=== PATIENT | female | born 1945 | race Caucasian/White ===

== ENCOUNTER 2019-01-02 07:09 | Emergency (ER) | payer MEDICAID ==
[~2019-01-02] VITALS: Ht 167.6 cm; Wt 83.9 kg
[2019-01-02 07:14] VITALS: BP 154/83
--- NOTE | 2019-01-02 07:20 | NUR ---
ED Nurse Note: Patient walked into ED form home, sent from [facility], patient c/o facial rash breakout since 12/26/18. patient reports headache on the left side 7-01/25. patient was told she need evaluation for herpes-zoster breakout and needs to be cleared before her scheduled left side breast mastectomy. patient is alert awake x4 ambulatory, brathing unlabored and even. friend at bedside
[2019-01-02] MEDS ORDERED: Fluorescein Strips LEFT EYE ONE (07:45)
[2019-01-02] MEDS ORDERED: Fluorescein Strips ONE (07:45)
[2019-01-02] MEDS ORDERED: Tetracaine 0.5% Opth 4ml Soln LEFT EYE ONE (07:45)
--- NOTE | 2019-01-02 07:57 | NUR ---
ED Nurse Note: patient placed in a gown for MRI
[2019-01-02] MEDS ORDERED: Gadavist 7.5mMol/7.5ml vial IV PRN (08:15)
--- NOTE | 2019-01-02 08:21 | NUR ---
ED Nurse Note: blood sent to lab
[2019-01-02 08:34] LABS: BASOPHILS % (AUTO) 1.7 % (0.0-2.0); EOSINOPHILS % (AUTO) 2.5 % (0.0-3.0); HEMOGLOBIN 14.2 G/DL (12.0-16.0); LYMPHOCYTES % (AUTO) 32.8 % (20.0-45.0); MEAN CORPUSCULAR VOLUME 88 FL (80-99); MONOCYTES % (AUTO) 8.2 % (1.0-10.0); NEUTROPHILS % (AUTO) 54.8 % (45.0-75.0); PLATELET COUNT 205 K/UL (150-450); RED BLOOD COUNT 4.88 M/UL (4.20-5.40); RED CELL DISTRIBUTION WIDTH 11.1 % (11.6-14.8); WHITE BLOOD COUNT 6.2 K/UL (4.8-10.8)
[2019-01-02 08:38] LABS: ANION GAP 7 mmol/L (5-15); BLOOD UREA NITROGEN 12 mg/dL (7-18); CALCIUM 9.9 MG/DL (8.5-10.1); CARBON DIOXIDE 29 MMOL/L (21-32); CHLORIDE 107 MMOL/L (98-107); CREATININE 0.9 MG/DL (0.55-1.30); POTASSIUM 4.4 MMOL/L (3.5-5.1); SODIUM 143 MMOL/L (136-145)
--- NOTE | 2019-01-02 08:40 | NUR ---
ED Nurse Note: patient went to MRI in stable condition
[2019-01-02 08:42] LABS: ALANINE AMINOTRANSFERASE 25 U/L (12-78); ALBUMIN/GLOBULIN RATIO 1.2 (1.0-2.7); ALKALINE PHOSPHATASE 80 U/L (46-116); ASPARTATE AMINO TRANSFERASE 25 U/L (15-37); BILIRUBIN,TOTAL 0.7 MG/DL (0.2-1.0)
--- NOTE | 2019-01-02 08:46 | Emergency Room Report ---
History of Present Illness General Chief Complaint: General Complaint Source: Patient, Family Member Present Illness HPI 73-year-old female presents ED for evaluation. Referred here from [facility] for evaluation. States that she has breast cancer and was scheduled for mastectomy next week however last week she developed a rash on the left side of her face also developing headache left-sided. Throbbing, 8 out of 10, nonradiating. Denies neck stiffness. Denies fevers or chills. [facility] concern for zoster and started patient on Valtrex. Is here to rule out optic nerve involvement. No other aggravating relieving factors. Denies any other associated symptoms Allergies: Coded Allergies: No Known Allergies (Unverified , 01/02/19) Patient History Past Medical History: other - breast cancer Past Surgical History: none Pertinent Family History: none Social History: Denies: smoking, alcohol use, drug use Last Menstrual Period: na Now: No Immunizations: UTD Reviewed Nursing Documentation: PMH: Agreed; PSxH: Agreed Nursing Documentation-PMH Hx Cancer: Yes - breast cancer Review of Systems All Other Systems: negative except mentioned in HPI Physical Exam Vital Signs Date Time Temp Pulse Resp B/P (MAP) Pulse Ox O2 Delivery O2 Flow Rate FiO2 01/02/19 07:14 97.9 74 17 154/83 (106) 96 Room Air Sp02 EP Interpretation: reviewed, normal General Appearance: no apparent distress, alert, GCS 15, non-toxic Head: normocephalic, atraumatic Eyes: left eye other - no evidence of dendritic lesions or corneal ulcer; bilateral eye normal inspection, bilateral eye PERRL, bilateral eye EOMI, bilateral eye visual acuity ENT: hearing grossly normal, normal pharynx, no angioedema, normal voice Neck: full range of motion, supple, no meningismus, supple/symm/no masses Respiratory: chest non-tender, lungs clear, normal breath sounds, speaking full sentences Cardiovascular #1: regular rate, rhythm, no edema Cardiovascular #2: 2+ carotid (R), 2+ carotid (L), 2+ radial (R), 2+ radial (L) , 2+ dorsalis pedis (R), 2+ dorsalis pedis (L) Gastrointestinal: normal bowel sounds, non tender, soft, non-distended, no guarding, no rebound Rectal: deferred Genitourinary: normal inspection, no CVA tenderness Musculoskeletal: back normal, gait/station normal, normal range of motion, non- tender Neurologic: alert, oriented x3, responsive, development writer III-XII nml as tested, motor strength/tone normal, sensory intact, speech normal Psychiatric: judgement/insight normal, memory normal, mood/affect normal, no suicidal/homicidal ideation Reflexes: 3+ bicep (R), 3+ bicep (L), 3+ tricep (R), 3+ tricep (L), 3+ knee (R) , 3+ knee (L) Skin: other - crusting vesicular lesions on L side of face. not crossing midline. Lymphatic: no adenopathy Medical Decision Making Diagnostic Impression: Primary Impression: Herpes zoster Qualified Codes: B02.30 - Zoster ocular disease, unspecified ER Course Hospital Course 73-year-old female presents ED for evaluation of headache, left eye pain. Currently being treated for zoster. Differential diagnoses include: brain mets, abscess, zoster opthalimicus Clinical course Patient placed on stretcher. After initial history and physical I ordered labs , MRI of brain and orbit Using tetracaine, fluorescein and was lab I see no evidence of obvious infiltration into the eye labs reviewed - no leukocytosis, Hb/Hct stable, no electrolyte abnormalities. MRI brain and orbit show no evidence of the optic involvement or brain abnormality Discussed case with ID based on presentation recommend admission with IV acyclovir and optho evaluation States she does not want to be admitted. Patient states she wishes to go home. Understands the risks of leaving. Patient has competency to make her own decisions. Signed AMA form. Recommend that she continues the valacyclovir as prescribed. Will provide with optho referrals iagnosis - herpes zoster patient left AMA Labs Test 01/02/19 08:18 01/02/19 09:59 White Blood Count 6.2 K/UL (4.8-10.8) Red Blood Count 4.88 M/UL (4.20-5.40) Hemoglobin 14.2 G/DL (12.0-16.0) Hematocrit 43.0 % (37.0-47.0) Mean Corpuscular Volume 88 FL (80-99) Mean Corpuscular Hemoglobin 29.0 PG (27.0-31.0) Mean Corpuscular Hemoglobin Concent 33.0 G/DL (32.0-36.0) Red Cell Distribution Width 11.1 % (11.6-14.8) Platelet Count 205 K/UL (150-450) Mean Platelet Volume 6.1 FL (6.5-10.1) Neutrophils (%) (Auto) 54.8 % (45.0-75.0) Lymphocytes (%) (Auto) 32.8 % (20.0-45.0) Monocytes (%) (Auto) 8.2 % (1.0-10.0) Eosinophils (%) (Auto) 2.5 % (0.0-3.0) Basophils (%) (Auto) 1.7 % (0.0-2.0) Sodium Level 143 MMOL/L (136-145) Potassium Level 4.4 MMOL/L (3.5-5.1) Chloride Level 107 MMOL/L (98-107) Carbon Dioxide Level 29 MMOL/L (21-32) Anion Gap 7 mmol/L (5-15) Blood Urea Nitrogen 12 mg/dL (7-18) Creatinine 0.9 MG/DL (0.55-1.30) Estimat Glomerular Filtration Rate mL/min (>60) Glucose Level 98 MG/DL (74-106) Calcium Level 9.9 MG/DL (8.5-10.1) Total Bilirubin 0.7 MG/DL (0.2-1.0) Aspartate Amino Transf (AST/SGOT) 25 U/L (15-37) Alanine Aminotransferase (ALT/SGPT) 25 U/L (12-78) Alkaline Phosphatase 80 U/L (46-116) Total Protein 7.3 G/DL (6.4-8.2) Albumin 4.0 G/DL (3.4-5.0) Globulin 3.3 g/dL Albumin/Globulin Ratio 1.2 (1.0-2.7) Lactic Acid Level 0.60 mmol/L (0.4-2.0) CT/MRI/US Diagnostic Results CT/MRI/US Diagnostic Results #1: Imaging Test Ordered: MRI brain Impression There is mild prominence of the sulci, ventricles, and basal cisterns consistent with atrophy. Mild, nonspecific T2 hyperintensity noted within white matter. This may be due to chronic small vessel disease. No abnormal enhancement is identified within the brain or meninges to suggest metastatic neoplasm. There is no restricted diffusion. [place]-white differentiation is normal. There is no mass effect, midline shift, edema, or hemorrhage. There are no abnormal extra- axial or intra-axial fluid collections. The corpus callosum and sella are unremarkable. The brainstem and cerebellum are unremarkable. Bone marrow signal within the visualized osseous structures appears age appropriate and unremarkable otherwise. The optic nerves are normal in appearance. There is no abnormal enhancement. The orbital fat appears normal. The optic chiasm is normal. Visualized suprasellar cistern is unremarkable. There is no abnormal fluid collection either intraconal or extraconal in location. There is a small amount of left eyelid and facial/ periorbital edema involving the subcutaneous tissue. No abscess or fluid collections are seen. Minimal mucosal thickening noted within the ethmoid sinus consistent with the mild sinusitis. There is a small lipoma along the right frontal scalp. CT/MRI/US Diagnostic Results #2: Imaging Test Ordered: MRI Orbits Impression There is mild prominence of the sulci, ventricles, and basal cisterns consistent with atrophy. Mild, nonspecific T2 hyperintensity noted within white matter. This may be due to chronic small vessel disease. No abnormal enhancement is identified within the brain or meninges to suggest metastatic neoplasm. There is no restricted diffusion. [place]-white differentiation is normal. There is no mass effect, midline shift, edema, or hemorrhage. There are no abnormal extra- axial or intra-axial fluid collections. The corpus callosum and sella are unremarkable. The brainstem and cerebellum are unremarkable. Bone marrow signal within the visualized osseous structures appears age appropriate and unremarkable otherwise. The optic nerves are normal in appearance. There is no abnormal enhancement. The orbital fat appears normal. The optic chiasm is normal. Visualized suprasellar cistern is unremarkable. There is no abnormal fluid collection either intraconal or extraconal in location. There is a small amount of left eyelid and facial/ periorbital edema involving the subcutaneous tissue. No abscess or fluid collections are seen. Minimal mucosal thickening noted within the ethmoid sinus consistent with the mild sinusitis. There is a small lipoma along the right frontal scalp. Last Vital Signs Date Time Temp Pulse Resp B/P (MAP) Pulse Ox O2 Delivery O2 Flow Rate FiO2 01/02/19 07:31 74 17 Room Air 01/02/19 07:14 97.9 154/83 96 Status: improved Disposition: AGAINST MEDICAL ADVICE Condition: Stable Scripts Acetaminophen With Codeine (T#3) (TYLENOL #3 TAB*) Y Tab 1 TAB ORAL Q8H PRN for For Pain, #12 TAB Prov: Sravan Rome MD 01/02/19 Referrals: NON PHYSICIAN (PCP) Sravan Rome MD Jan 02, 2019 08:46
[2019-01-02] MEDS ORDERED: Acyclovir 1,000 MG in D5W 275 ML IVPB ONE (09:15)
--- NOTE | 2019-01-02 10:00 | NUR ---
ED Nurse Note: patient came back from MRI
[2019-01-02] MEDS ORDERED: Tylenol #3 tab (300mg/30mg) ORAL ONE (10:15)
--- NOTE | 2019-01-02 10:53 | Diagnostic Imaging Report ---
Indication: Shingles. Left eye blurriness. Concern for optic neuritis. Dizziness and headache Technique: The head was imaged in a 1.5 Nia magnet. Sequences obtained include sagittal and axial T1 FLAIR, axial T2 fast spin echo with fat saturation, axial T2 FLAIR, diffusion and ADC map. Gadolinium-enhanced axial and coronal T1 FLAIR obtained also. Orbit MRI also performed with and without gadolinium. Multiplanar T1 and T2 fast spin-echo and gadolinium-enhanced multiplanar T1 fast spin-echo with fat saturation. Comparison: None Findings: There is mild prominence of the sulci, ventricles, and basal cisterns consistent with atrophy. Mild, nonspecific T2 hyperintensity noted within white matter. This may be due to chronic small vessel disease. No abnormal enhancement is identified within the brain or meninges to suggest metastatic neoplasm. There is no restricted diffusion. [place]-white differentiation is normal. There is no mass effect, midline shift, edema, or hemorrhage. There are no abnormal extra-axial or intra-axial fluid collections. The corpus callosum and sella are unremarkable. The brainstem and cerebellum are unremarkable. Bone marrow signal within the visualized osseous structures appears age appropriate and unremarkable otherwise. The optic nerves are normal in appearance. There is no abnormal enhancement. The orbital fat appears normal. The optic chiasm is normal. Visualized suprasellar cistern is unremarkable. There is no abnormal fluid collection either intraconal or extraconal in location. There is a small amount of left eyelid and facial/periorbital edema involving the subcutaneous tissue. No abscess or fluid collections are seen. Minimal mucosal thickening noted within the ethmoid sinus consistent with the mild sinusitis. There is a small lipoma along the right frontal scalp. Impression: No acute intracranial findings. No evidence of metastatic neoplasm. No evidence of optic neuritis. Left periorbital soft tissue swelling presumably related to shingles. No abscess identified. Age-related findings including atrophy and evidence of chronic small vessel disease involving white matter tracts. Findings were discussed with Dr. Latricia hodges emergency department at approximately 10:00 AM 01/02/2019
[2019-01-02] MEDS ORDERED: ACETAMINOPHEN-1 EAC1 ORAL (10:59)
--- NOTE | 2019-01-02 11:10 | NUR ---
AMA: SEE AMA FORM. patient refused to get admitted to hospital as MD advised.
[2019-01-02 11:11] VITALS: BP 154/83
--- NOTE | 2019-01-02 11:11 | NUR ---
ER DISCHARGE NOTE: Patient is cleared to be discharged per ERMD DR Rome, pt is aox4, on room air, with stable vital signs. pt was given dc and prescription instructions, pt was able to verbalize understanding, pt id band and iv site removed without complications. pt is able to ambulate with steady gait. pt took all belongings.
== END 2019-01-02 11:11 | disposition left against medical advice (07) ==
LOC: EMR 07:32 → CANBEDREQ 11:20
DX: B02.9 Zoster without complications (principal); C50.919 Malignant neoplasm of unspecified site of unspecified female breast
CPT/HCPCS: 36415; 70543; 70553; 80053; 83605; 85025; 87040; 96361; 96365; 99284; A9585; J0133

== ENCOUNTER 2019-12-12 16:15 | Emergency (ER) | payer MEDICAID ==
[~2019-12-12] VITALS: Ht 162.6 cm; Wt 90.3 kg
[~2019-12-12 16:15] MED LIST: ACETAMINOPHEN-1 EAC1 ORAL
--- NOTE | 2019-12-12 16:32 | NUR ---
ED Nurse Note:pt. came from home with c/o burning right flank pain radiating to the abdomen since yesterday, pt. is ambulatory, skin intact, A/Ox4
--- NOTE | 2019-12-12 16:44 | Emergency Room Report ---
History of Present Illness General Chief Complaint: Abdominal Pain Source: Patient, Medical Record Present Illness HPI Patient presents with right upper quadrant pain radiating across the upper abdomen that began last night. She took [id number] English medication and it seemed to help. The medicine is an anti-spasmatic apparently. The pain returned approximately an hour ago. She rates it 8/10 and severe and cramping but also burning. It radiates again across the abdomen to the left-hand side from the right. She is worried that this is related to her liver because she is had some chemotherapy and is taking some medication for the liver at this time. She vomited some saliva without coffee grounds or food stuff. She denies nausea at this time. She has moved her bowels and does not have diarrhea. She denies dysuria also. She had a similar episode many years ago at that she says was cholecystitis. She still has her gallbladder. No fevers, chills, sore throat, chest pain, palpitations, shortness of breath, joint pain, rashes, depression, anxiety, visual changes, dizziness, headache. Allergies: Coded Allergies: No Known Allergies (Unverified , 01/02/19) COVID-19 Screening Contact w/high risk pt: No Recent Travel to affected area: No Experienced COVID-19 symptoms?: No COVID-19 Testing performed ELECTRICAL TEST TECHNICIAN: No Patient History Past Medical History: see triage record Social History: Denies: smoking Social History Narrative [place] speaking Reviewed Nursing Documentation: PMH: Agreed; PSxH: Agreed Nursing Documentation-PMH Past Medical History: No History, Except For Hx Cancer: Yes - breast cancer Review of Systems All Other Systems: negative except mentioned in HPI Physical Exam Vital Signs Date Time Temp Pulse Resp B/P (MAP) Pulse Ox O2 Delivery O2 Flow Rate FiO2 12/12/19 16:18 97.9 70 20 128/70 (89) 98 Room Air Sp02 EP Interpretation: reviewed, normal General Appearance: well appearing, no apparent distress, GCS 15, non-toxic Head: normocephalic Eyes: bilateral eye normal inspection, bilateral eye PERRL, bilateral eye EOMI ENT: moist mucus membranes Neck: supple Respiratory: lungs clear, normal breath sounds Cardiovascular #1: regular rate, rhythm Cardiovascular #2: 2+ radial (R) Gastrointestinal: normal inspection, normal bowel sounds, no mass, non- distended, no rebound, guarding - minimal, tenderness - RUQ Genitourinary: no CVA tenderness Musculoskeletal: back normal, normal range of motion, gait/station normal Neurologic: alert, oriented x3, normal inspection Psychiatric: mood/affect normal Skin: no rash, warm/dry Medical Decision Making Diagnostic Impression: Primary Impression: Acute pancreatitis Qualified Codes: K85.90 - Acute pancreatitis without necrosis or infection, unspecified Additional Impression: Elevated liver function tests ER Course Patient presents with right upper quadrant pain rating to the left that began last night. Differential includes cholecystitis, cholelithiasis, peptic ulcer disease, renal stone, aortic aneurysm, gastritis, acute myocardial infarction amongst others. The patient is placed on a athletic monitor. Evaluation will be with EKG CT of the abdomen and labs. The patient receive IV hydration, Reglan, Benadryl, Pepcid and morphine. EKG no injury. Chest x-ray with poor inspiration. Labs with normal white count but left shift. Elevated liver function tests and lipase. Based on labs, suspect gall bladder disease. CT abdomen cancelled and ultrasound ordered. 1809 Ultrasound with small gallstones without evidence of cholecystitis. Discussed the need for hospitalization with patient. She insists on going home. Through the nurse she was told of risk of . She says she will follow-up with her own doctor. Patient signed out AGAINST MEDICAL ADVICE. Laboratory Tests Test 12/12/19 17:00 White Blood Count 7.5 K/UL (4.8-10.8) Red Blood Count 4.40 M/UL (4.20-5.40) Hemoglobin 12.7 G/DL (12.0-16.0) Hematocrit 38.4 % (37.0-47.0) Mean Corpuscular Volume 87 FL (80-99) Mean Corpuscular Hemoglobin 28.9 PG (27.0-31.0) Mean Corpuscular Hemoglobin Concent 33.1 G/DL (32.0-36.0) Red Cell Distribution Width 13.0 % (11.6-14.8) Platelet Count 149 K/UL (150-450) L Mean Platelet Volume 7.0 FL (6.5-10.1) Neutrophils (%) (Auto) % (45.0-75.0) Lymphocytes (%) (Auto) % (20.0-45.0) Monocytes (%) (Auto) % (1.0-10.0) Eosinophils (%) (Auto) % (0.0-3.0) Basophils (%) (Auto) % (0.0-2.0) Differential Total Cells Counted 100 Neutrophils % (Manual) 90 % (45-75) H Lymphocytes % (Manual) 6 % (20-45) L Monocytes % (Manual) 3 % (1-10) Eosinophils % (Manual) 1 % (0-3) Basophils % (Manual) 0 % (0-2) Band Neutrophils 0 % (0-8) Platelet Estimate Decreased L Platelet Morphology Normal Red Blood Cell Morphology Normal Prothrombin Time 11.0 SEC (9.30-11.50) Prothrombin Time INR 1.0 (0.9-1.1) Activated Partial Thromboplast Time 25 SEC (23-33) Sodium Level 136 MMOL/L (136-145) Potassium Level 3.7 MMOL/L (3.5-5.1) Chloride Level 101 MMOL/L (98-107) Carbon Dioxide Level 25 MMOL/L (21-32) Anion Gap 10 mmol/L (5-15) Blood Urea Nitrogen 22 mg/dL (7-18) H Creatinine 1.1 MG/DL (0.55-1.30) Estimated Glomerular Filtration Rate 48.7 mL/min (>60) Glucose Level 131 MG/DL (74-106) H Calcium Level 9.6 MG/DL (8.5-10.1) Total Bilirubin 1.0 MG/DL (0.2-1.0) Aspartate Amino Transferase (AST) 155 U/L (15-37) H Alanine Aminotransferase (ALT) 103 U/L (12-78) H Alkaline Phosphatase 156 U/L (46-116) H Troponin I 0.000 ng/mL (0.000-0.056) Total Protein 7.1 G/DL (6.4-8.2) Albumin 3.8 G/DL (3.4-5.0) Globulin 3.3 g/dL Albumin/Globulin Ratio 1.2 (1.0-2.7) Lipase 6002 U/L (73-393) H EKG Diagnostic Results Rate: normal Rhythm: NSR ST Segments: no acute changes Rhythm Strip Diag. Results EP Interpretation: yes Rhythm: NSR, no PVC's, no ectopy CT/MRI/US Diagnostic Results CT/MRI/US Diagnostic Results : Imaging Test Ordered: Abdomen ultrasound Impression Small gallstone without pericholecystic free fluid. Gallbladder wall is thick at 5 mm, clinically correlate. CBD 4 mm. Mild prominence of the right renal pelvis is nonspecific. Last Vital Signs Date Time Temp Pulse Resp B/P (MAP) Pulse Ox O2 Delivery O2 Flow Rate FiO2 12/12/19 19:12 97.9 20 128/70 98 Room Air 12/12/19 16:32 70 Status: improved Disposition: AGAINST MEDICAL ADVICE Condition: Serious Scripts No Active Prescriptions or Reported Meds Jeremy Olmos MD Dec 12, 2019 16:44
[2019-12-12] MEDS ORDERED: DiphenhydrAMINE 50mg/ml Inj IVP ONE (16:45)
[2019-12-12] MEDS ORDERED: Omnipaque-300 100ml vial INJ PRN (16:45)
[2019-12-12] MEDS ORDERED: Metoclopramide 10mg/2ml Inj IVP ONE (16:45)
[2019-12-12] MEDS ORDERED: Morphine Sulfate 2mg/ml Inj(IV/IM USE ONLY) IVP ONE (16:45)
[2019-12-12 16:55] VITALS: BP 128/70
[2019-12-12 17:52] LABS: ANION GAP 10 mmol/L (5-15); BLOOD UREA NITROGEN 22 mg/dL (7-18); CALCIUM 9.6 MG/DL (8.5-10.1); CARBON DIOXIDE 25 MMOL/L (21-32); CHLORIDE 101 MMOL/L (98-107); CREATININE 1.1 MG/DL (0.55-1.30); POTASSIUM 3.7 MMOL/L (3.5-5.1); SODIUM 136 MMOL/L (136-145)
[2019-12-12 17:56] LABS: HEMATOCRIT 38.4 % (37.0-47.0); HEMOGLOBIN 12.7 G/DL (12.0-16.0); MEAN CORPUSCULAR VOLUME 87 FL (80-99); PLATELET COUNT 149 K/UL (150-450); WHITE BLOOD COUNT 7.5 K/UL (4.8-10.8)
[2019-12-12 18:02] LABS: ALANINE AMINOTRANSFERASE 103 U/L (12-78); ALBUMIN 3.8 G/DL (3.4-5.0); ALBUMIN/GLOBULIN RATIO 1.2 (1.0-2.7); ALKALINE PHOSPHATASE 156 U/L (46-116); ASPARTATE AMINO TRANSFERASE 155 U/L (15-37)
--- NOTE | 2019-12-12 18:12 | Diagnostic Imaging Report ---
Indication: Reason For Exam: ABD PAIN Technique: Single AP view of the chest. Comparison: None. Findings: The cardiomediastinal silhouette is within normal limits. Mild pulmonary vessel congestion. There are streaky bibasilar airspace opacities. No pneumothorax. No acute osseous abnormality. IMPRESSION: Pulmonary vessel congestion with streaky bibasilar airspace opacities which could represent combination of edema and atelectasis but pneumonia should be excluded clinically.
[2019-12-12 19:12] VITALS: BP 128/70
--- NOTE | 2019-12-12 19:15 | NUR ---
AMA:pt. was explained by STEPHANIE ALDRICH possible consequences of her going AMA SEE AMA FORM.
--- NOTE | 2019-12-12 19:26 | Diagnostic Imaging Report ---
History: ABD PAIN Exam: US ABDOMEN Comparison: FINDINGS: Study limited by body habitus. Abdominal aorta appears within limits. Pancreas not well-seen. Inferior vena cava appears unremarkable. Liver measures 14.1 cm. Small gallstone without pericholecystic free fluid. Wall measures 5 mm. CBD 4 mm. Mild prominence of the right renal pelvis is nonspecific. No left hydronephrosis. No free fluid seen. Spleen measures 9 cm. IMPRESSION: Small gallstone without pericholecystic free fluid. Gallbladder wall is thick at 5 mm, clinically correlate. CBD 4 mm. Mild prominence of the right renal pelvis is nonspecific.
== END 2019-12-12 19:15 | disposition left against medical advice (07) ==
LOC: EMR 16:45 → CANBEDREQ 19:19
DX: K85.90 Acute pancreatitis without necrosis or infection, unspecified (principal); R94.5 Abnormal results of liver function studies; Z85.3 Personal history of malignant neoplasm of breast; K80.80 Other cholelithiasis without obstruction
CPT/HCPCS: 36415; 71045; 76700; 80053; 83690; 84484; 85007; 85025; 85610; 85730; 86850; 86900; 86901; 93005; 96361; 96374; 96375; J1200; J2270; J2765; J7030; S0028; Z7502; 99284

== ENCOUNTER 2020-07-20 08:50 | Inpatient (IN) | payer MEDICAID ==
[~2020-07-20] VITALS: Ht 160 cm; Wt 72.6 kg
[2020-07-20] MEDS ORDERED: Morphine Sulfate 2mg/ml Inj(IV/IM USE ONLY) IVP ONE (09:15)
[2020-07-20 09:17] VITALS: BP 115/48
[2020-07-20 09:31] LABS: HEMATOCRIT 43.5 % (37.0-47.0); HEMOGLOBIN 14.2 G/DL (12.0-16.0); MEAN CORPUSCULAR VOLUME 86 FL (80-99); PLATELET COUNT 129 K/UL (150-450); RED BLOOD COUNT 5.04 M/UL (4.20-5.40); RED CELL DISTRIBUTION WIDTH 12.1 % (11.6-14.8); WHITE BLOOD COUNT 11.3 K/UL (4.8-10.8)
[2020-07-20 09:41] LABS: CALCIUM 9.9 MG/DL (8.5-10.1); CREATININE 1.1 MG/DL (0.55-1.30); POTASSIUM 3.7 MMOL/L (3.5-5.1)
--- NOTE | 2020-07-20 09:49 | Emergency Room Report ---
History of Present Illness General Chief Complaint: Abdominal Pain Source: Patient Present Illness HPI Patient is a 74-year-old female presents for increased right upper abdominal pain. Prior history of gallstones in the past. Reports having worsening pain and vomiting persistently. States he been vomiting for the past 3 days. Denies any hematemesis reports having some bilious emesis. Reports having increased pain with eating. Denies any diarrhea has had decreased bowel movements. Patient had been unable to eat for several days. Patient has longstanding pain but this got worse over the past 10 days. Patient had prior history of left- sided breast cancer and had recent mastectomy approximate 1 year ago.Patient had previous radiation therapy. Allergies: Coded Allergies: No Known Allergies (Unverified , 01/02/19) COVID-19 Screening Contact w/high risk pt: No Recent Travel to affected area: No Experienced COVID-19 symptoms?: No COVID-19 Testing performed APPRENTICE EMBALMER: No Patient History Past Medical History: see triage record Reviewed Nursing Documentation: PMH: Agreed; PSxH: Agreed Nursing Documentation-PMH Past Medical History: No History, Except For Hx Cancer: Yes - breast cancer left Hx Gastrointestinal Problems: Yes - cholesistitis Review of Systems All Other Systems: negative except mentioned in HPI Physical Exam Vital Signs Date Time Temp Pulse Resp B/P (MAP) Pulse Ox O2 Delivery O2 Flow Rate FiO2 07/20/20 08:53 98.2 92 17 94/57 (69) 95 Room Air Sp02 EP Interpretation: reviewed, normal General Appearance: normal inspection, well appearing, alert, GCS 15, mild distress Head: atraumatic ENT: normal ENT inspection, hearing grossly normal, normal voice Neck: normal inspection, full range of motion, supple, no bony tend Respiratory: normal inspection, lungs clear, normal breath sounds, no respiratory distress, no retraction, no wheezing Cardiovascular #1: regular rate, rhythm, no edema Gastrointestinal: normal inspection, normal bowel sounds, soft, no guarding, no hernia, tenderness - Right upper abdomen tenderness. Genitourinary: no CVA tenderness Musculoskeletal: normal inspection, back normal, normal range of motion Neurologic: alert, motor strength/tone normal, director of strategic partnerships III-XII nml as tested, responsive, speech normal, normal inspection Psychiatric: normal inspection, judgement/insight normal, mood/affect normal Medical Decision Making Diagnostic Impression: Primary Impression: Abdominal pain Additional Impressions: Elevated liver function tests Breast cancer ER Course Patient presents for abdominal pain. Differential diagnosis include was not limited to pancreatitis, ulcer, cholecystitis among others. Because of complexity of patient's case laboratory tests and imaging studies were ordered.Patient's laboratory testing showed some elevation of liver function test. Abdominal ultrasound was ordered as was CT of the abdomen pelvis. Patient is given IV fluids as well as pain medications. Dr. Jameson Ahumada was contacted for inpatient management. Laboratory Tests Test 07/22/20 08:50 07/23/20 05:30 White Blood Count 3.9 K/UL (4.8-10.8) L Pending Red Blood Count 4.12 M/UL (4.20-5.40) L Pending Hemoglobin 11.8 G/DL (12.0-16.0) L Pending Hematocrit 36.4 % (37.0-47.0) L Pending Mean Corpuscular Volume 88 FL (80-99) Pending Mean Corpuscular Hemoglobin 28.6 PG (27.0-31.0) Pending Mean Corpuscular Hemoglobin Concent 32.4 G/DL (32.0-36.0) Pending Red Cell Distribution Width 12.4 % (11.6-14.8) Pending Platelet Count 117 K/UL (150-450) L Pending Mean Platelet Volume 6.8 FL (6.5-10.1) Pending Neutrophils (%) (Auto) 52.2 % (45.0-75.0) Pending Lymphocytes (%) (Auto) 29.8 % (20.0-45.0) Pending Monocytes (%) (Auto) 13.6 % (1.0-10.0) H Pending Eosinophils (%) (Auto) 3.6 % (0.0-3.0) H Pending Basophils (%) (Auto) 0.9 % (0.0-2.0) Pending Sodium Level 143 MMOL/L (136-145) Pending Potassium Level 3.6 MMOL/L (3.5-5.1) Pending Chloride Level 109 MMOL/L (98-107) H Pending Carbon Dioxide Level 26 MMOL/L (21-32) Pending Anion Gap 8 mmol/L (5-15) Blood Urea Nitrogen 8 mg/dL (7-18) Pending Creatinine 0.8 MG/DL (0.55-1.30) Pending Estimated Glomerular Filtration Rate > 60 mL/min (>60) Pending Glucose Level 94 MG/DL (74-106) Pending Calcium Level 9.1 MG/DL (8.5-10.1) Pending Total Bilirubin 1.3 MG/DL (0.2-1.0) H Pending Direct Bilirubin 1.0 MG/DL (0.0-0.3) H Aspartate Amino Transferase (AST) 178 U/L (15-37) H Pending Alanine Aminotransferase (ALT) 230 U/L (12-78) H Pending Alkaline Phosphatase 257 U/L (46-116) H Pending Total Protein 6.0 G/DL (6.4-8.2) L Pending Albumin 2.8 G/DL (3.4-5.0) L Pending Globulin 3.2 g/dL Pending Albumin/Globulin Ratio 0.9 (1.0-2.7) L Amylase Level Pending Lipase Pending Last Vital Signs Date Time Temp Pulse Resp B/P (MAP) Pulse Ox O2 Delivery O2 Flow Rate FiO2 07/20/20 09:28 87 18 Room Air 07/20/20 09:17 115/48 99 07/20/20 08:53 98.2 Status: improved Disposition: ADMITTED INPATIENT Condition: Stable Scripts No Active Prescriptions or Reported Meds Hill Shepard MD Jul 20, 2020 09:49
[2020-07-20 09:52] LABS: ALBUMIN 3.9 G/DL (3.4-5.0); ALBUMIN/GLOBULIN RATIO 1.1 (1.0-2.7); BILIRUBIN,TOTAL 1.4 MG/DL (0.2-1.0)
[2020-07-20 09:53] LABS: BILIRUBIN,DIRECT 0.5 MG/DL (0.0-0.3)
[2020-07-20 09:58] LABS: INR 1.1 (0.9-1.1)
[2020-07-20 10:56] VITALS: BP 110/45
[2020-07-20 13:28] VITALS: BP 134/78
[2020-07-20] MEDS ORDERED: Omnipaque-300 100ml vial INJ PRN (13:30)
--- NOTE | 2020-07-20 13:37 | NUR ---
ED Nurse Note: called report to Betzaida RAINEY. room 418. pt in [address] now
[2020-07-20 13:56] LABS: APPEARANCE,URINE CLEAR; BILIRUBIN, URINE NEGATIVE (NEGATIVE); GLUCOSE, URINE (UA) NEGATIVE (NEGATIVE); KETONES,URINE NEGATIVE (NEGATIVE); LEUKOCYTE ESTERASE ,URINE NEGATIVE (NEGATIVE); NITRITE,URINE NEGATIVE (NEGATIVE); PH,URINE 6.5 (4.5-8.0); PROTEIN,URINE NEGATIVE (NEGATIVE); UROBILINOGEN,URINE NORMAL MG/DL (0.0-1.0)
[2020-07-20 13:59] LABS: COLOR,URINE YELLOW
--- NOTE | 2020-07-20 14:19 | NUR ---
NURSE NOTES: Received report from Fernando RAINEY, German speaking, per Lo HERNANDEZ, patient is a/a/o x4 laying in a bed with no signs of distress. patient is complaining of pain 7/10 abdomen. per report pt got morphine and Zofran last dosage given 914. IV on the left AC gauge#20 HL. RN will contact to request admission orders. call light within reach, bed in lowest position,side rales up x2. I will f/u as needed.
--- NOTE | 2020-07-20 14:44 | History and Physical Report ---
DATE OF ADMISSION: 07/20/2020 DATE AND TIME SEEN: 07/20/2020 at 1 p.m. CONSULTANTS: 1. Trenton Teresa MD. 2. Rajeev Richard MD. 3. Almas Posadas MD. 4. Jean-Claude Love MD. CHIEF COMPLAINT: Right upper quadrant pain, history of gallstone and breast cancer. BRIEF HISTORY: This is a 74-year-old female, who lives at home, presents with three-day increased right abdominal pain and nausea. The patient came to [facility], diagnosed with above. Currently in a wheelchair, CAT scan. Slight nausea and positive abdominal pain. No complaint. REVIEW OF SYSTEMS: No chest pain. No shortness of breath. Slight nausea. No vomiting. No diarrhea. PAST MEDICAL HISTORY: Gallstone, left breast cancer, pancreatitis, and herpes zoster. PAST SURGICAL HISTORY: Mastectomy one year ago. MEDICATIONS: Include Zofran, morphine, and . ALLERGIES: Denies. SOCIAL HISTORY: Unable to obtain. PHYSICAL EXAMINATION: GENERAL: Calm, in wheelchair in the ER, oriented x3, no acute distress. VITAL SIGNS: Temperature is 98, pulse 67, respirations 18, blood pressure 134/78. CARDIOVASCULAR: No murmur. LUNGS: Distant and clear. ABDOMEN: Bowel sounds positive. Slightly tender. No guarding. No rigidity. No rebound. EXTREMITIES: No cyanosis or edema. NEUROLOGIC: The patient moves all extremities slightly weak. LABORATORY AND DIAGNOSTIC DATA: Labs at this time show white count 11.3 and otherwise platelets 129. Sodium 135, glucose 138. AST 335, ALT 452, alkaline phosphatase 321, otherwise normal. INR 1.1. ASSESSMENT: Right upper quadrant pain, history of gallstone, left breast cancer, elevated LFT, pancreatitis, and herpes zoster. PLAN: Pain control. NPO. IV fluids. Dietary followup. Pending CT. CBC and BMP in the morning. Jameson Ahumada D.O. DR: JODIE/ARY JOB#: [id number] CC:
--- NOTE | 2020-07-20 14:54 | Consultation ---
History of Present Illness General Date patient seen: Jul 20, 2020 Reason for Hospitalization: Abdominal Pain Present Illness HPI 74-year-old female presents for increased right upper abdominal pain with radiation to right flank and back. Prior history of gallstones in the past. Reports having worsening pain and vomiting persistently. States he been vomiting for the past 3 days. Denies any hematemesis reports having some bilious emesis. Reports having increased pain with eating. Denies any diarrhea has had decreased bowel movements. Patient had been unable to eat for several days. Patient has longstanding pain but this got worse over the past 10 days. Patient had prior history of left-sided breast cancer and had recent mastectomy approximate 1 year ago. surgery called to evaluate Allergies: Coded Allergies: No Known Allergies (Unverified , 01/02/19) COVID-19 Screening Contact w/high risk pt: No Recent Travel to affected area: No Experienced COVID-19 symptoms?: No Medication History No Active Prescriptions or Reported Meds Patient History Healthcare decision maker Resuscitation status Advanced Directive on File Review of Systems Review of Symptoms General ROS: no weight loss or fever Psychological ROS: no depression or mood changes, no memory loss Ophthalmic ROS: no visual changes or eye irritation ENT ROS: no nasal congestion, hearing loss, dizziness Allergy and Immunology ROS: no allergic symptoms or urticaria Hematological and Lymphatic ROS: no swollen glands, unusual bleeding or bruising Endocrine ROS: no polyuria, polydipsia, weight changes, temperature intolerance Respiratory ROS: no cough, shortness of breath, or wheezing Cardiovascular ROS: no chest pain or dyspnea on exertion Gastrointestinal ROS: + abdominal pain, bright red blood in stool. Musculoskeletal ROS: no myalgias or arthralgias Neurological ROS: no TIA or stroke symptoms Dermatological ROS: no new or changing skin lesions, rashes or pruritis Physical Exam Physical Exam General appearance: alert, cooperative, no distress, appears stated age Head: Normocephalic, without obvious abnormality, atraumatic Eyes: conjunctivae/corneas clear. PERRL, EOM's intact. Fundi benign Throat: Lips, mucosa, and tongue normal. Teeth and gums normal Neck: supple, symmetrical, trachea midline, no adenopathy, thyroid: not enlarged, symmetric, no tenderness/mass/nodules, no carotid bruit and no JVD Lungs: clear to auscultation bilaterally Heart: regular rate and rhythm, S1, S2 normal, no murmur, click, rub or gallop Abdomen: soft, non-tender. Bowel sounds normal. No masses, no organomegaly. right flank tender Extremities: extremities normal, atraumatic, no cyanosis or edema Pulses: 2+ and symmetric Skin: Skin color, texture, turgor normal. No rashes or lesions Neurologic: Grossly normal Last 24 Hour Vital Signs Date Time Temp Pulse Resp B/P (MAP) Pulse Ox O2 Delivery O2 Flow Rate FiO2 07/20/20 14:39 Room Air 07/20/20 13:28 67 18 134/78 100 Room Air 07/20/20 10:56 77 18 110/45 98 Room Air 07/20/20 09:47 98.2 07/20/20 09:28 87 18 Room Air 07/20/20 09:17 81 18 115/48 99 Room Air 07/20/20 08:53 98.2 92 17 94/57 (69) 95 Room Air Laboratory Tests Test 07/20/20 09:08 07/20/20 13:25 White Blood Count 11.3 K/UL (4.8-10.8) H Red Blood Count 5.04 M/UL (4.20-5.40) Hemoglobin 14.2 G/DL (12.0-16.0) Hematocrit 43.5 % (37.0-47.0) Mean Corpuscular Volume 86 FL (80-99) Mean Corpuscular Hemoglobin 28.1 PG (27.0-31.0) Mean Corpuscular Hemoglobin Concent 32.6 G/DL (32.0-36.0) Red Cell Distribution Width 12.1 % (11.6-14.8) Platelet Count 129 K/UL (150-450) L Mean Platelet Volume 6.7 FL (6.5-10.1) Neutrophils (%) (Auto) % (45.0-75.0) Lymphocytes (%) (Auto) % (20.0-45.0) Monocytes (%) (Auto) % (1.0-10.0) Eosinophils (%) (Auto) % (0.0-3.0) Basophils (%) (Auto) % (0.0-2.0) Differential Total Cells Counted 100 Neutrophils % (Manual) 91 % (45-75) H Lymphocytes % (Manual) 5 % (20-45) L Monocytes % (Manual) 4 % (1-10) Eosinophils % (Manual) 0 % (0-3) Basophils % (Manual) 0 % (0-2) Band Neutrophils 0 % (0-8) Platelet Estimate Adequate Platelet Morphology Normal Red Blood Cell Morphology Normal Prothrombin Time 12.0 SEC (9.30-11.50) H Prothromb Time International Ratio 1.1 (0.9-1.1) Activated Partial Thromboplast Time 26 SEC (23-33) Sodium Level 135 MMOL/L (136-145) L Potassium Level 3.7 MMOL/L (3.5-5.1) Chloride Level 100 MMOL/L (98-107) Carbon Dioxide Level 24 MMOL/L (21-32) Anion Gap 11 mmol/L (5-15) Blood Urea Nitrogen 10 mg/dL (7-18) Creatinine 1.1 MG/DL (0.55-1.30) Estimat Glomerular Filtration Rate 48.7 mL/min (>60) Glucose Level 138 MG/DL (74-106) H Calcium Level 9.9 MG/DL (8.5-10.1) Total Bilirubin 1.4 MG/DL (0.2-1.0) H Direct Bilirubin 0.5 MG/DL (0.0-0.3) H Aspartate Amino Transf (AST/SGOT) 335 U/L (15-37) H Alanine Aminotransferase (ALT/SGPT) 452 U/L (12-78) H Alkaline Phosphatase 321 U/L (46-116) H Troponin I 0.000 ng/mL (0.000-0.056) Total Protein 7.4 G/DL (6.4-8.2) Albumin 3.9 G/DL (3.4-5.0) Globulin 3.5 g/dL Albumin/Globulin Ratio 1.1 (1.0-2.7) Lipase 79 U/L (73-393) Urine Color Yellow Urine Appearance Clear Urine pH 6.5 (4.5-8.0) Urine Specific [place] 1.005 (1.005-1.035) Urine Protein Negative (NEGATIVE) Urine Glucose (UA) Negative (NEGATIVE) Urine Ketones Negative (NEGATIVE) Urine Blood 2+ (NEGATIVE) H Urine Nitrite Negative (NEGATIVE) Urine Bilirubin Negative (NEGATIVE) Urine Urobilinogen Normal MG/DL (0.0-1.0) Urine Leukocyte Esterase Negative (NEGATIVE) Urine RBC 0-2 /HPF (0 - 2) Urine WBC 0-2 /HPF (0 - 2) Urine Squamous Epithelial Cells Occasional /LPF Urine Bacteria Occasional /HPF (NONE) Height (Feet): 5 Height (Inches): 4.00 Weight (Pounds): 160 Medications Current Medications Medications (Trade) Dose Ordered Sig/Perez Route PRN Reason Start Time Stop Time Status Last Admin Dose Admin Iohexol (OMNIPAQUE-300 100ml) 100 ml NOW PRN INJ Radiology Procedure 07/20/20 13:30 07/22/20 13:29 Assessment/Plan Problem List: (1) Herpes zoster ICD Codes: B02.9 - Zoster without complications SNOMED: 7767177 (2) Acute pancreatitis ICD Codes: K85.90 - Acute pancreatitis without necrosis or infection, unspecified SNOMED: 299926363, 577748564 (3) Elevated liver function tests Assessment & Plan: 74-year-old female presenting with right upper quadrant abdominal pain flank pain pain. No nausea vomit fever chills at this time. Labs noted elevated LFTs. Lipase normal. Ultrasound noted. CT pending. On examination flank pain mild nominal discomfort. Need further imaging to continue to assess patient. No acute surgical invention urgently from the emergency department. Labs ordered imaging ordered differential potential renal versus biliary versus hepatic. Will follow with examination and recommendations. Thank you let me participation's care. N.p.o. IV fluids ICD Codes: R79.89 - Other specified abnormal findings of blood chemistry SNOMED: 678429767, 898908987 (4) Cholecystitis ICD Codes: K81.9 - Cholecystitis, unspecified SNOMED: 21420943 Almas Posadas Jul 20, 2020 14:54
[2020-07-20] MEDS ORDERED: Mylanta II UD 30ml ORAL PRN (15:00)
[2020-07-20] MEDS ORDERED: Milk of Magnesia 30ml Ud ORAL PRN (15:00)
[2020-07-20] MEDS ORDERED: Morphine Sulfate 2mg/ml Inj(IV/IM USE ONLY) IVP PRN (15:00)
--- NOTE | 2020-07-20 15:23 | Diagnostic Imaging Report ---
Clinical Indication: Right upper quadrant abdominal pain with vomiting Technique: No oral contrast utilized, reason not stated IV administration nonionic contrast. Venous phase spiral acquisition obtained through the abdomen and pelvis. Multiplanar reconstructions were generated. Total dose length product 455 mGycm. CTDIvol(s) 8 mGy. Dose reduction achieved using automated exposure control Comparison: Abdominal sonogram of earlier the same day. No comparison CT scan Findings: A gallstone is seen within the gallbladder. The gallbladder is distended but the wall does not appear to be thickened. The common bile duct is mildly dilated, measuring up to 10 mm diameter. No downstream obstructive lesion demonstrated, however. There is mild intrahepatic biliary ductal dilatation. The liver, pancreas, spleen, adrenals are unremarkable. The kidneys demonstrate mild bilateral hydronephrosis and proximal hydroureter, but the ureters gradually taper to normal caliber and no destructive lesion is demonstrated. The right kidney demonstrates a subcentimeter low-attenuation lesion which is too small to characterize. No pelvic mass or adenopathy. Uterus and adnexal structures appear unremarkable. Lack of enteric contrast limits assessment of the GI tract. The appendix is normal. There is colonic diverticulosis. No evidence of acute diverticulitis. No small bowel distention. No free or loculated intraperitoneal gas or fluid is evident. The distal esophagus, stomach, duodenum are unremarkable. The included lung bases demonstrate posterior dependent atelectatic changes. The bones demonstrate degenerative spondylosis changes. Impression: Cholelithiasis. Distended gallbladder without gallbladder wall thickening Extrahepatic and mild central intrahepatic biliary ductal dilatation, without evidence of downstream destructive lesion. Possibly age related. Correlate with liver function tests, consider MRCP for further evaluation if clinically indicated Mild bilateral hydronephrosis and proximal hydroureter without evidence of downstream obstruction lesion. Significance/etiology uncertain. Colonic diverticulosis. No evidence of diverticulitis Findings noted, including degenerative spondylosis, basilar pulmonary parenchymal dependent atelectasis, probable small subcentimeter right renal cyst The CT scanner at [facility] is accredited by the [employer] and the scans are performed using protocols designed to limit radiation exposure to as low as reasonably achievable to attain images of sufficient resolution adequate for diagnostic evaluation.
[2020-07-20 16:00] VITALS: BP 150/52
--- NOTE | 2020-07-20 16:04 | Diagnostic Imaging Report ---
Indication: Abdominal pain. Abnormal liver tests. History of breast carcinoma Technique: [place]-scale and duplex images of the upper abdomen were obtained Comparison: 12/12/2019. Findings: Gallbladder is demonstrates borderline wall thickening. There is a gallstone noted. No pericholecystic fluid. Sonographic Toth's sign is negative. Common bile duct measures 4 mm in diameter. No intrahepatic biliary ductal dilatation. Liver demonstrates normal echogenicity, no focal abnormality. Portal vein and hepatic veins are patent. Pancreas is unremarkable. Spleen is unremarkable. Left kidney measures 10.9 cm in length. Right kidney measures 10.3 cm length. Both kidneys demonstrate normal echogenicity. The right kidney demonstrates mild fullness to the renal collecting system. No definite left hydronephrosis. No focal abnormality . Non-aneurysmal abdominal aorta . Unremarkable inferior vena cava Impression: Cholelithiasis. Borderline gallbladder wall thickening, raises possibility of acute cholecystitis. Consider hepatobiliary nuclear scan if there is high clinical suspicion Mild right renal collecting system fullness, etiology not demonstrated. Also evident previously
--- NOTE | 2020-07-20 16:12 | Diagnostic Imaging Report ---
Indication: Cough Technique: One view of the chest Comparison: 12/12/2019 Findings: Prominent interstitial markings are seen in the left perihilar region, probably not significant changed from previously. Lungs and pleural spaces are clear otherwise. The heart size is normal. There is no significant interim change Impression: No definite acute process
[2020-07-20] MEDS: Piperacillin/Tazobactam 3.375 GM in NS 110 ML IVPB SCH ×2 (16:41→22:04)
--- NOTE | 2020-07-20 19:15 | NUR ---
NURSE NOTES: Report given to Melissa RAINEY, patient in stable condition. - clear liquid diet - pt ambulates - full code
--- NOTE | 2020-07-20 19:37 | NUR ---
NURSE NOTES: Patient awake in bed, on room air, with IV access on the right forearm g.20 running NS @75cc/hr. No complaints on time of rounds. Call light in reach. Bed in lowest, lock engaged and alarm on. Will continue to monitor.
[2020-07-20 20:00] VITALS: BP 109/41
[2020-07-20] MEDS: Docusate 100mg cap ORAL SCH (20:56)
[2020-07-21] VITALS: BP 113/55
[2020-07-21 04:00] VITALS: BP 117/40
[2020-07-21] MEDS: Piperacillin/Tazobactam 3.375 GM in NS 110 ML IVPB SCH ×3 (05:24→22:00)
--- NOTE | 2020-07-21 07:03 | Consultation ---
History of Present Illness General Chief Complaint: Abdominal Pain Present Illness Allergies: Coded Allergies: No Known Allergies (Unverified , 01/02/19) Medication History No Active Prescriptions or Reported Meds Patient History Healthcare decision maker Resuscitation status Advanced Directive on File Physical Exam Last 24 Hour Vital Signs Date Time Temp Pulse Resp B/P (MAP) Pulse Ox O2 Delivery O2 Flow Rate FiO2 07/21/20 04:00 98.2 76 17 117/40 (65) 96 07/21/20 00:00 98.1 66 16 113/55 (74) 96 07/20/20 21:00 Room Air 07/20/20 20:00 98.6 76 17 109/41 (63) 96 07/20/20 16:02 99.5 07/20/20 16:00 99.5 89 20 150/52 (84) 89 07/20/20 14:39 Room Air 07/20/20 14:00 98.2 67 18 134/78 100 Room Air 07/20/20 13:28 67 18 134/78 100 Room Air 07/20/20 10:56 77 18 110/45 98 Room Air 07/20/20 09:47 98.2 07/20/20 09:28 87 18 Room Air 07/20/20 09:17 81 18 115/48 99 Room Air 07/20/20 08:53 98.2 92 17 94/57 (69) 95 Room Air Intake and Output 07/20/20 07/21/20 19:00 07:00 Intake Total 500 ml 400 ml Balance 500 ml 400 ml Intake Oral 500 ml 400 ml # Voids 3 Laboratory Tests Test 07/20/20 09:08 07/20/20 13:25 White Blood Count 11.3 K/UL (4.8-10.8) H Red Blood Count 5.04 M/UL (4.20-5.40) Hemoglobin 14.2 G/DL (12.0-16.0) Hematocrit 43.5 % (37.0-47.0) Mean Corpuscular Volume 86 FL (80-99) Mean Corpuscular Hemoglobin 28.1 PG (27.0-31.0) Mean Corpuscular Hemoglobin Concent 32.6 G/DL (32.0-36.0) Red Cell Distribution Width 12.1 % (11.6-14.8) Platelet Count 129 K/UL (150-450) L Mean Platelet Volume 6.7 FL (6.5-10.1) Neutrophils (%) (Auto) % (45.0-75.0) Lymphocytes (%) (Auto) % (20.0-45.0) Monocytes (%) (Auto) % (1.0-10.0) Eosinophils (%) (Auto) % (0.0-3.0) Basophils (%) (Auto) % (0.0-2.0) Differential Total Cells Counted 100 Neutrophils % (Manual) 91 % (45-75) H Lymphocytes % (Manual) 5 % (20-45) L Monocytes % (Manual) 4 % (1-10) Eosinophils % (Manual) 0 % (0-3) Basophils % (Manual) 0 % (0-2) Band Neutrophils 0 % (0-8) Platelet Estimate Adequate Platelet Morphology Normal Red Blood Cell Morphology Normal Prothrombin Time 12.0 SEC (9.30-11.50) H Prothromb Time International Ratio 1.1 (0.9-1.1) Activated Partial Thromboplast Time 26 SEC (23-33) Sodium Level 135 MMOL/L (136-145) L Potassium Level 3.7 MMOL/L (3.5-5.1) Chloride Level 100 MMOL/L (98-107) Carbon Dioxide Level 24 MMOL/L (21-32) Anion Gap 11 mmol/L (5-15) Blood Urea Nitrogen 10 mg/dL (7-18) Creatinine 1.1 MG/DL (0.55-1.30) Estimat Glomerular Filtration Rate 48.7 mL/min (>60) Glucose Level 138 MG/DL (74-106) H Calcium Level 9.9 MG/DL (8.5-10.1) Total Bilirubin 1.4 MG/DL (0.2-1.0) H Direct Bilirubin 0.5 MG/DL (0.0-0.3) H Aspartate Amino Transf (AST/SGOT) 335 U/L (15-37) H Alanine Aminotransferase (ALT/SGPT) 452 U/L (12-78) H Alkaline Phosphatase 321 U/L (46-116) H Troponin I 0.000 ng/mL (0.000-0.056) Total Protein 7.4 G/DL (6.4-8.2) Albumin 3.9 G/DL (3.4-5.0) Globulin 3.5 g/dL Albumin/Globulin Ratio 1.1 (1.0-2.7) Lipase 79 U/L (73-393) Urine Color Yellow Urine Appearance Clear Urine pH 6.5 (4.5-8.0) Urine Specific [place] 1.005 (1.005-1.035) Urine Protein Negative (NEGATIVE) Urine Glucose (UA) Negative (NEGATIVE) Urine Ketones Negative (NEGATIVE) Urine Blood 2+ (NEGATIVE) H Urine Nitrite Negative (NEGATIVE) Urine Bilirubin Negative (NEGATIVE) Urine Urobilinogen Normal MG/DL (0.0-1.0) Urine Leukocyte Esterase Negative (NEGATIVE) Urine RBC 0-2 /HPF (0 - 2) Urine WBC 0-2 /HPF (0 - 2) Urine Squamous Epithelial Cells Occasional /LPF Urine Bacteria Occasional /HPF (NONE) Height (Feet): 5 Height (Inches): 3.00 Weight (Pounds): 160 Medications Current Medications Medications (Trade) Dose Ordered Sig/Perez Route PRN Reason Start Time Stop Time Status Last Admin Dose Admin Acetaminophen (Tylenol) 650 mg Q4H PRN ORAL Temp >100.5 07/20/20 15:00 08/19/20 14:59 07/20/20 15:32 Al Hydroxide/Mg Hydroxide (Mylanta II) 30 ml Q6H PRN ORAL dyspepsia 07/20/20 15:00 08/19/20 14:59 Bisacodyl (Dulcolax) 10 mg HSPRN PRN RECTAL Constipation 07/20/20 15:00 10/18/20 14:59 Dextrose (Dextrose 50%) 25 ml Q30M PRN IV Hypoglycemia 07/20/20 15:00 10/18/20 14:59 Dextrose (Dextrose 50%) 50 ml Q30M PRN IV Hypoglycemia 07/20/20 15:00 10/18/20 14:59 Diphenhydramine HCl (Benadryl) 25 mg Q6H PRN ORAL Itching/Pruritis 07/20/20 15:00 08/19/20 14:59 Docusate Sodium (Colace) 100 mg EVERY 12 HOURS ORAL 07/20/20 21:00 08/19/20 20:59 07/20/20 20:56 Iohexol (OMNIPAQUE-300 100ml) 100 ml NOW PRN INJ Radiology Procedure 07/20/20 13:30 07/22/20 13:29 Magnesium Hydroxide (Mom) 30 ml HSPRN PRN ORAL Constipation 07/20/20 15:00 08/19/20 14:59 Morphine Sulfate (Morphine Sulfate) 2 mg Q4H PRN IVP Moderate Pain (Pain Scale 4-6) 07/20/20 15:00 07/27/20 14:59 Ondansetron HCl (Zofran) 4 mg Q6H PRN IVP Nausea & Vomiting 07/20/20 15:00 08/19/20 14:59 Pantoprazole (Protonix) 40 mg DAILY IV 07/21/20 09:00 08/20/20 08:59 Piperacillin Sod/ Tazobactam Sod 3.375 gm/Sodium Chloride 110 ml @ 27.5 mls/hr EVERY 8 HOURS IVPB 07/20/20 16:00 07/25/20 15:59 07/21/20 05:24 Sodium Chloride 1,000 ml @ 75 mls/hr [id number] IVLG 07/20/20 16:00 08/19/20 15:59 07/20/20 16:41 Temazepam (Restoril) 15 mg HSPRN PRN ORAL Insomnia 07/20/20 21:00 07/27/20 20:59 Assessment/Plan Assessment/Plan: Hematology Consultation Reason for Hospitalization: Abdominal Pain RFC: Low platelets REQ MD: Jameson Vieira DOS: 07/21/2020 HPI 74-year-old female, [place] speaking from [facility] presents for increased right upper abdominal pain with radiation to right flank and back. Prior history of gallstones in the past. Reports having worsening pain and vomiting persistently. States he been vomiting for the past 3 days. Denies any hematemesis reports having some bilious emesis. Reports having increased pain with eating. Denies any diarrhea has had decreased bowel movements. Patient had been unable to eat for several days. Patient has longstanding pain but this got worse over the past 10 days. Patient had prior history of left-sided breast cancer and had recent mastectomy approximate 1 year ago. have reviewed recs, labs reviewed and heme consulted. Coded Allergies: No Known Allergies (Unverified , 01/02/19) COVID-19 Screening Contact w/high risk pt: No Recent Travel to affected area: No Experienced COVID-19 symptoms?: No Medication History No Active Prescriptions or Reported Meds Patient History Healthcare decision maker Resuscitation status Advanced Directive on File Review of Systems Review of Symptoms General ROS: no weight loss or fever Psychological ROS: no depression or mood changes, no memory loss Ophthalmic ROS: no visual changes or eye irritation ENT ROS: no nasal congestion, hearing loss, dizziness Allergy and Immunology ROS: no allergic symptoms or urticaria Hematological and Lymphatic ROS: no swollen glands, unusual bleeding or bruising Endocrine ROS: no polyuria, polydipsia, weight changes, temperature intolerance Respiratory ROS: no cough, shortness of breath, or wheezing Cardiovascular ROS: no chest pain or dyspnea on exertion Gastrointestinal ROS: + abdominal pain, bright red blood in stool. Musculoskeletal ROS: no myalgias or arthralgias Neurological ROS: no TIA or stroke symptoms Dermatological ROS: no new or changing skin lesions, rashes or pruritis Physical Exam Physical Exam General appearance: alert, cooperative, no distress, appears stated age HEENT: nc, at Neck: supple, symmetrical, trachea midline, no adenopathy Lungs: clear to auscultation bilaterally Heart: regular rate and rhythm, S1, S2 normal, no murmur, click, rub or gallop Abdomen: soft, non-tender. ++ right flank tender Extremities: extremities normal, atraumatic, no cyanosis or edema Pulses: 2+ and symmetric Skin: Skin color, texture, turgor normal Neurologic: Grossly normal Labs: reviewed Imaging: noted Assessment/Plan # Left-sided breast cancer and had recent mastectomy approximate 1 year ago --> periodical surveillance with mammo --> consider mri as needed based on resection --> outpatient eval # Thrombocytopenia r/o infection --> as per id recs --> neutropenic precautions -> hep and hiv ordered --> transfuse prn # Coagulopathy likely reactive process --> pt elevated # Abdominal pain biliary v renal colic --> as per surg recs --> imaging as needed # Dvt ppx lovenox sq Appreciate consultation and dw Kentrell Ayala MD Jul 21, 2020 07:03
--- NOTE | 2020-07-21 07:41 | NUR ---
NURSE NOTES: Patient received from REDD Sewell. Patient awake in bed, alert and oriented x 4, no SOB, bed in lowest position with breaks engaged and alarm on, denies any pain at this time, IV line present, on room air, on contact and droplet precaution for PUI for covid, will continue to monitor and proceed with plan of care, call light within reach.
--- NOTE | 2020-07-21 07:43 | NUR ---
NURSE HAND-OFF: Important Events on Shift: monitoring, meds Patient Status: Diet: clear liq Pending Orders: Pending Results/Labs: Pending MD notification: Latest Vital Signs: Temperature 98.2 , Pulse 76 , B/P 117 /40 , Respiratory Rate 17 , O2 SAT 96 , Room Air, O2 Flow Rate . Vital Sign Comment: Latest Dejesus Fall Score: 20 Fall Risk: Low Risk Safety Measures: Call light Within Reach, Bed Alarm Zone 1, Side Rails Side Rails x2, Bed position Low and Locked. Fall Precautions: Patient Fall Education Report given to REDD Flores.
[2020-07-21 07:48] LABS: BASOPHILS % (AUTO) 2.2 % (0.0-2.0); EOSINOPHILS % (AUTO) 0.6 % (0.0-3.0); HEMATOCRIT 37.2 % (37.0-47.0); HEMOGLOBIN 12.3 G/DL (12.0-16.0); LYMPHOCYTES % (AUTO) 10.7 % (20.0-45.0); MEAN CORPUSCULAR VOLUME 86 FL (80-99); MONOCYTES % (AUTO) 11.4 % (1.0-10.0); NEUTROPHILS % (AUTO) 75.1 % (45.0-75.0); PLATELET COUNT 114 K/UL (150-450); RED BLOOD COUNT 4.34 M/UL (4.20-5.40); RED CELL DISTRIBUTION WIDTH 12.3 % (11.6-14.8); WHITE BLOOD COUNT 6.4 K/UL (4.8-10.8)
[2020-07-21 07:53] LABS: ALBUMIN 3.1 G/DL (3.4-5.0); BILIRUBIN,TOTAL 0.8 MG/DL (0.2-1.0); CALCIUM 9.1 MG/DL (8.5-10.1); POTASSIUM 3.8 MMOL/L (3.5-5.1)
[2020-07-21 08:00] VITALS: BP 114/55
[2020-07-21 08:14] LABS: INR 1.1 (0.9-1.1)
[2020-07-21] MEDS: Pantoprazole Inj IV SCH (08:57)
[2020-07-21] MEDS: Docusate 100mg cap ORAL SCH ×2 (08:57→20:22)
--- NOTE | 2020-07-21 09:28 | General Progress Note ---
Subjective Constitutional: Reports: weakness Allergies: Coded Allergies: No Known Allergies (Unverified , 01/02/19) All Systems: reviewed and negative except above Subjective calm in bed Objective Last 24 Hour Vital Signs Date Time Temp Pulse Resp B/P (MAP) Pulse Ox O2 Delivery O2 Flow Rate FiO2 07/21/20 08:00 97.9 75 17 114/55 (74) 96 07/21/20 04:00 98.2 76 17 117/40 (65) 96 07/21/20 00:00 98.1 66 16 113/55 (74) 96 07/20/20 21:00 Room Air 07/20/20 20:00 98.6 76 17 109/41 (63) 96 07/20/20 16:02 99.5 07/20/20 16:00 99.5 89 20 150/52 (84) 89 07/20/20 14:39 Room Air 07/20/20 14:00 98.2 67 18 134/78 100 Room Air 07/20/20 13:28 67 18 134/78 100 Room Air 07/20/20 10:56 77 18 110/45 98 Room Air 07/20/20 09:47 98.2 07/20/20 09:28 87 18 Room Air Intake and Output 07/20/20 07/21/20 19:00 07:00 Intake Total 500 ml 400 ml Balance 500 ml 400 ml Intake Oral 500 ml 400 ml # Voids 3 Laboratory Tests 07/20/20 13:25: Urine Color Yellow, Urine Appearance Clear, Urine pH 6.5, Urine Specific [place] 1.005, Urine Protein Negative, Urine Glucose (UA) Negative, Urine Ketones Negative, Urine Blood 2+H, Urine Nitrite Negative, Urine Bilirubin Negative, Urine Urobilinogen Normal, Urine Leukocyte Esterase Negative, Urine RBC 0-2, Urine WBC 0-2, Urine Squamous Epithelial Cells Occasional, Urine Bacteria Occasional 07/21/20 06:37: White Blood Count 6.4, Red Blood Count 4.34, Hemoglobin 12.3, Hematocrit 37.2, Mean Corpuscular Volume 86, Mean Corpuscular Hemoglobin 28.2, Mean Corpuscular Hemoglobin Concent 32.9, Red Cell Distribution Width 12.3, Platelet Count 114L, Mean Platelet Volume 7.5, Neutrophils (%) (Auto) 75.1H, Lymphocytes (%) (Auto) 10.7L, Monocytes (%) (Auto) 11.4H, Eosinophils (%) (Auto) 0.6, Basophils (%) (Auto) 2.2H, Prothrombin Time 12.0H, Prothromb Time International Ratio 1.1, Activated Partial Thromboplast Time 30, Sodium Level 139, Potassium Level 3.8, Chloride Level 106, Carbon Dioxide Level 24, Anion Gap 9, Blood Urea Nitrogen 10, Creatinine 1.0, Estimat Glomerular Filtration Rate 54.3, Glucose Level 87, Calcium Level 9.1, Total Bilirubin 0.8, Aspartate Amino Transf (AST/SGOT) 127H, Alanine Aminotransferase (ALT/SGPT) 257H, Alkaline Phosphatase 224H, Total Protein 6.3L, Albumin 3.1L, Globulin 3.2, Albumin/Globulin Ratio 1.0, HIV (1&2) Antibody Rapid [Pending] Height (Feet): 5 Height (Inches): 3.00 Weight (Pounds): 160 General Appearance: alert EENT: normal ENT inspection Neck: normal alignment Cardiovascular: normal peripheral pulses, normal rate, regular rhythm Respiratory/Chest: chest wall non-tender, lungs clear, normal breath sounds Abdomen: normal bowel sounds, non tender, soft Extremities: normal inspection Edema: no edema noted Arm (L), no edema noted Arm (R), no edema noted Leg (L), no edema noted Leg (R), no edema noted Pedal (L), no edema noted Pedal (R), no edema noted Generalized Neurologic: responsive, motor weakness Skin: normal pigmentation, warm/dry Assessment/Plan Problem List: (1) Gallstone ICD Codes: K80.20 - Calculus of gallbladder without cholecystitis without obstruction SNOMED: 634158648 (2) Abdominal pain ICD Codes: R10.9 - Unspecified abdominal pain SNOMED: 92694474 (3) Breast cancer ICD Codes: C50.919 - Malignant neoplasm of unspecified site of unspecified female breast SNOMED: 324205357 (4) Herpes zoster ICD Codes: B02.9 - Zoster without complications SNOMED: 2336388 (5) Elevated liver function tests ICD Codes: R79.89 - Other specified abnormal findings of blood chemistry SNOMED: 352765171, 797041450 (6) Cholecystitis ICD Codes: K81.9 - Cholecystitis, unspecified SNOMED: 46519963 (7) Acute pancreatitis ICD Codes: K85.90 - Acute pancreatitis without necrosis or infection, unspecified SNOMED: 422122249, 859101101 Status: unchanged Assessment/Plan: gi sx f/u pain control [facility]bc [facility] am Jameson Ahumada DO Jul 21, 2020 09:28
--- NOTE | 2020-07-21 09:31 | Consultation ---
History of Present Illness General Date patient seen: Jul 21, 2020 Time patient seen: 12:41 Chief Complaint: Abdominal Pain Referring physician: PCP Reason for Consultation: Acute cholecysitis Present Illness HPI 74yo F who p/w RUQ pain, h/o gallstones. ID c/s given c/f acute cholecystitis. Friend translates on phone to [place] for me Pt reports she had pain like this 40 years ago w/ gallstone acute ray, but never had surgery to remove her GB Now w/ worsening RUQ pain for the past few days, pain is much improved now although did have some tramadol earlier in the morning had N/V no fevers/chill No resp sx No COVID contacts No allergies to abx Pt has been AF, HDS in house on RA. Leukocytosis to 11 improved Elevated LFTs are downtrending PMH: Gallstones L sided breast CA s/p mastectomy 1 year ago Allergies: Coded Allergies: No Known Allergies (Unverified , 01/02/19) Medication History No Active Prescriptions or Reported Meds Patient History Healthcare decision maker Resuscitation status Advanced Directive on File Review of Systems ROS Narrative 10-point ROS neg except as noted in HPI Physical Exam Physical Exam Narrative Gen: NAD HEENT: NCAT Pulm: BL chest rise Abd: Soft, NTND, no RUQ TTP Ext: No c/c/e Skin: No visible rashes Neuro: Awake, alert, interactive in [place] Last 24 Hour Vital Signs Date Time Temp Pulse Resp B/P (MAP) Pulse Ox O2 Delivery O2 Flow Rate FiO2 07/21/20 08:00 97.9 75 17 114/55 (74) 96 07/21/20 04:00 98.2 76 17 117/40 (65) 96 07/21/20 00:00 98.1 66 16 113/55 (74) 96 07/20/20 21:00 Room Air 07/20/20 20:00 98.6 76 17 109/41 (63) 96 07/20/20 16:02 99.5 07/20/20 16:00 99.5 89 20 150/52 (84) 89 07/20/20 14:39 Room Air 07/20/20 14:00 98.2 67 18 134/78 100 Room Air 07/20/20 13:28 67 18 134/78 100 Room Air 07/20/20 10:56 77 18 110/45 98 Room Air 07/20/20 09:47 98.2 07/20/20 09:28 87 18 Room Air Intake and Output 07/20/20 07/21/20 19:00 07:00 Intake Total 500 ml 400 ml Balance 500 ml 400 ml Intake Oral 500 ml 400 ml # Voids 3 Laboratory Tests Test 07/20/20 13:25 07/21/20 06:37 Urine Color Yellow Urine Appearance Clear Urine pH 6.5 (4.5-8.0) Urine Specific [place] 1.005 (1.005-1.035) Urine Protein Negative (NEGATIVE) Urine Glucose (UA) Negative (NEGATIVE) Urine Ketones Negative (NEGATIVE) Urine Blood 2+ (NEGATIVE) H Urine Nitrite Negative (NEGATIVE) Urine Bilirubin Negative (NEGATIVE) Urine Urobilinogen Normal MG/DL (0.0-1.0) Urine Leukocyte Esterase Negative (NEGATIVE) Urine RBC 0-2 /HPF (0 - 2) Urine WBC 0-2 /HPF (0 - 2) Urine Squamous Epithelial Cells Occasional /LPF Urine Bacteria Occasional /HPF (NONE) White Blood Count 6.4 K/UL (4.8-10.8) Red Blood Count 4.34 M/UL (4.20-5.40) Hemoglobin 12.3 G/DL (12.0-16.0) Hematocrit 37.2 % (37.0-47.0) Mean Corpuscular Volume 86 FL (80-99) Mean Corpuscular Hemoglobin 28.2 PG (27.0-31.0) Mean Corpuscular Hemoglobin Concent 32.9 G/DL (32.0-36.0) Red Cell Distribution Width 12.3 % (11.6-14.8) Platelet Count 114 K/UL (150-450) L Mean Platelet Volume 7.5 FL (6.5-10.1) Neutrophils (%) (Auto) 75.1 % (45.0-75.0) H Lymphocytes (%) (Auto) 10.7 % (20.0-45.0) L Monocytes (%) (Auto) 11.4 % (1.0-10.0) H Eosinophils (%) (Auto) 0.6 % (0.0-3.0) Basophils (%) (Auto) 2.2 % (0.0-2.0) H Prothrombin Time 12.0 SEC (9.30-11.50) H Prothromb Time International Ratio 1.1 (0.9-1.1) Activated Partial Thromboplast Time 30 SEC (23-33) Sodium Level 139 MMOL/L (136-145) Potassium Level 3.8 MMOL/L (3.5-5.1) Chloride Level 106 MMOL/L (98-107) Carbon Dioxide Level 24 MMOL/L (21-32) Anion Gap 9 mmol/L (5-15) Blood Urea Nitrogen 10 mg/dL (7-18) Creatinine 1.0 MG/DL (0.55-1.30) Estimat Glomerular Filtration Rate 54.3 mL/min (>60) Glucose Level 87 MG/DL (74-106) Calcium Level 9.1 MG/DL (8.5-10.1) Total Bilirubin 0.8 MG/DL (0.2-1.0) Aspartate Amino Transf (AST/SGOT) 127 U/L (15-37) H Alanine Aminotransferase (ALT/SGPT) 257 U/L (12-78) H Alkaline Phosphatase 224 U/L (46-116) H Total Protein 6.3 G/DL (6.4-8.2) L Albumin 3.1 G/DL (3.4-5.0) L Globulin 3.2 g/dL Albumin/Globulin Ratio 1.0 (1.0-2.7) HIV (1&2) Antibody Rapid Pending Height (Feet): 5 Height (Inches): 3.00 Weight (Pounds): 160 Medications Current Medications Medications (Trade) Dose Ordered Sig/Perez Route PRN Reason Start Time Stop Time Status Last Admin Dose Admin Acetaminophen (Tylenol) 650 mg Q4H PRN ORAL Temp >100.5 07/20/20 15:00 08/19/20 14:59 07/20/20 15:32 Al Hydroxide/Mg Hydroxide (Mylanta II) 30 ml Q6H PRN ORAL dyspepsia 07/20/20 15:00 08/19/20 14:59 Bisacodyl (Dulcolax) 10 mg HSPRN PRN RECTAL Constipation 07/20/20 15:00 10/18/20 14:59 Dextrose (Dextrose 50%) 25 ml Q30M PRN IV Hypoglycemia 07/20/20 15:00 5/3/21 14:59 Dextrose (Dextrose 50%) 50 ml Q30M PRN IV Hypoglycemia 07/20/20 15:00 10/18/20 14:59 Diphenhydramine HCl (Benadryl) 25 mg Q6H PRN ORAL Itching/Pruritis 07/20/20 15:00 08/19/20 14:59 Docusate Sodium (Colace) 100 mg EVERY 12 HOURS ORAL 07/20/20 21:00 08/19/20 20:59 07/21/20 08:57 Iohexol (OMNIPAQUE-300 100ml) 100 ml NOW PRN INJ Radiology Procedure 07/20/20 13:30 07/22/20 13:29 Magnesium Hydroxide (Mom) 30 ml HSPRN PRN ORAL Constipation 07/20/20 15:00 08/19/20 14:59 Morphine Sulfate (Morphine Sulfate) 2 mg Q4H PRN IVP Moderate Pain (Pain Scale 4-6) 07/20/20 15:00 07/27/20 14:59 Ondansetron HCl (Zofran) 4 mg Q6H PRN IVP Nausea & Vomiting 07/20/20 15:00 08/19/20 14:59 Pantoprazole (Protonix) 40 mg DAILY IV 07/21/20 09:00 08/20/20 08:59 07/21/20 08:57 Piperacillin Sod/ Tazobactam Sod 3.375 gm/Sodium Chloride 110 ml @ 27.5 mls/hr EVERY 8 HOURS IVPB 07/20/20 16:00 07/25/20 15:59 07/21/20 05:24 Sodium Chloride 1,000 ml @ 75 mls/hr [id number] IVLG 07/20/20 16:00 08/19/20 15:59 07/20/20 16:41 Temazepam (Restoril) 15 mg HSPRN PRN ORAL Insomnia 07/20/20 21:00 07/27/20 20:59 Assessment/Plan Assessment/Plan: 74yo F with: Afebrile Leukocytosis to 11, improved RUQ pain, c/f acute cholecystitis Elevated LFTs to 335 / 452, improving 2/ BCx p UA neg COVID PCR p CXR: No acute process CT A/P: Cholelithiasis. Distended gallbladder without gallbladder wall thickening. Extrahepatic and mild central intrahepatic biliary ductal dilatation, without evidence of downstream destructive lesion. Mild bilateral hydronephrosis and proximal hydroureter without evidence of downstream obstruct ion lesion. Significance/etiology uncertain. Cr 1.0 PMH: Gallstones L sided breast CA s/p mastectomy 1 year ago Plan: Cont Zosyn #2 Appreciate Gen Surg, GI input on possible acute cholecystitis and if intervention warranted at this time F/u HIV screen F/u COVID PCR screen Trend LFTs, improving Monitor CBC/CMP Monitor temp curve, hemodynamics Monitor resp status D/w RN Thank you for this consult. [facility] will continue to follow. Jessie Tao M.D. Jul 21, 2020 09:31
--- NOTE | 2020-07-21 11:31 | NUR ---
P.T Note: P.T evaluation completed and tx initiated. Please refer to P.T evaluation for current functional status. Pt is alert, O x4 , pleasant and cooperative. Pt c/o min pain and discomfort on lower back and R side but tolerable with activities. Pt tolerated P.T evaluation and functional mobilities well despite discomfort in the lower back. Pt is independent for bed mobilities and supervision for transfers and gait/ambulation activities. Encourage pt OOB activities during stay i.e ambulation and OOB during meals with nursing assist. Will revisit pt again tomorrow for another session to ensure safety on her ADL/functional mobilities during stay.
[2020-07-21 12:00] VITALS: BP 118/62
--- NOTE | 2020-07-21 13:46 | NUR ---
RD ASSESSMENT & RECOMMENDATIONS SEE CARE ACTIVITY FOR COMPLETE ASSESSMENT DAILY ESTIMATED NEEDS: Needs based on cholecystis/ 57kg abw 25-30 kcals/kg 4354-0096 total kcals 1-1.2 g protein/kg 57-68 g total protein 25-30 mL/kg 1221-4769 total fluid mLs NUTRITION DIAGNOSIS: Altered nutrition related lab values R/T cholecystis as evidenced by elev LFTs, trending down, elev T bili upon adm-> now wnl. CURRENT DIET:CLEAR LIQUID DIET PO DIET RECOMMENDATIONS: Advance diet per MD -> LOW NA, LOW FAT ADDITIONAL RECOMMENDATIONS: * Ensure CLEAR TID while on clear liquid diet * Trend LFTs * Monitor PO tolerance and acceptance
--- NOTE | 2020-07-21 13:49 | Surgery Progress Note ---
Surgery Progress Note Subjective Additional Comments afebrile, HD stable pain improved labs improve no n/v Objective Last 24 Hour Vital Signs Date Time Temp Pulse Resp B/P (MAP) Pulse Ox O2 Delivery O2 Flow Rate FiO2 07/21/20 12:00 97.5 75 17 118/62 (80) 96 07/21/20 09:00 Room Air 07/21/20 08:00 97.9 75 17 114/55 (74) 96 07/21/20 04:00 98.2 76 17 117/40 (65) 96 07/21/20 00:00 98.1 66 16 113/55 (74) 96 07/20/20 21:00 Room Air 07/20/20 20:00 98.6 76 17 109/41 (63) 96 07/20/20 16:02 99.5 07/20/20 16:00 99.5 89 20 150/52 (84) 89 07/20/20 14:39 Room Air 07/20/20 14:00 98.2 67 18 134/78 100 Room Air I&O Intake and Output 07/20/20 07/21/20 19:00 07:00 Intake Total 500 ml 400 ml Balance 500 ml 400 ml Intake Oral 500 ml 400 ml # Voids 3 Cardiovascular: RSR Respiratory: clear Abdomen: soft, non-tender, present bowel sounds, non-distended Extremities: no edema, no tenderness, no cyanosis Laboratory Tests Test 07/21/20 06:37 White Blood Count 6.4 K/UL (4.8-10.8) Red Blood Count 4.34 M/UL (4.20-5.40) Hemoglobin 12.3 G/DL (12.0-16.0) Hematocrit 37.2 % (37.0-47.0) Mean Corpuscular Volume 86 FL (80-99) Mean Corpuscular Hemoglobin 28.2 PG (27.0-31.0) Mean Corpuscular Hemoglobin Concent 32.9 G/DL (32.0-36.0) Red Cell Distribution Width 12.3 % (11.6-14.8) Platelet Count 114 K/UL (150-450) L Mean Platelet Volume 7.5 FL (6.5-10.1) Neutrophils (%) (Auto) 75.1 % (45.0-75.0) H Lymphocytes (%) (Auto) 10.7 % (20.0-45.0) L Monocytes (%) (Auto) 11.4 % (1.0-10.0) H Eosinophils (%) (Auto) 0.6 % (0.0-3.0) Basophils (%) (Auto) 2.2 % (0.0-2.0) H Prothrombin Time 12.0 SEC (9.30-11.50) H Prothromb Time International Ratio 1.1 (0.9-1.1) Activated Partial Thromboplast Time 30 SEC (23-33) Sodium Level 139 MMOL/L (136-145) Potassium Level 3.8 MMOL/L (3.5-5.1) Chloride Level 106 MMOL/L (98-107) Carbon Dioxide Level 24 MMOL/L (21-32) Anion Gap 9 mmol/L (5-15) Blood Urea Nitrogen 10 mg/dL (7-18) Creatinine 1.0 MG/DL (0.55-1.30) Estimat Glomerular Filtration Rate 54.3 mL/min (>60) Glucose Level 87 MG/DL (74-106) Calcium Level 9.1 MG/DL (8.5-10.1) Total Bilirubin 0.8 MG/DL (0.2-1.0) Aspartate Amino Transf (AST/SGOT) 127 U/L (15-37) H Alanine Aminotransferase (ALT/SGPT) 257 U/L (12-78) H Alkaline Phosphatase 224 U/L (46-116) H Total Protein 6.3 G/DL (6.4-8.2) L Albumin 3.1 G/DL (3.4-5.0) L Globulin 3.2 g/dL Albumin/Globulin Ratio 1.0 (1.0-2.7) Hepatitis A IgM Antibody Pending Hepatitis B Surface Antigen Pending Hepatitis B Core IgM Antibody Pending Hepatitis C Antibody Pending HIV (1&2) Antibody Rapid Pending Plan Problems: (1) Herpes zoster (2) Acute pancreatitis (3) Elevated liver function tests Assessment & Plan: 74-year-old female presenting with right upper quadrant a bdominal pain flank pain pain. No nausea vomit fever chills at this time. Labs noted elevated LFTs. Lipase normal. Ultrasound noted. CT pending. On examination flank pain mild nominal discomfort. Need further imaging to continue to assess patient. No acute surgical invention urgently from the emergency department. Labs ordered imaging ordered differential potential renal versus biliary versus hepatic. Will follow with examination and recommendations. Thank you let me participation's care. N.p.o. IV fluids pain improved no n/v comfortable CT noted okay for diet no acute surgical intervention planned outpatient f/u for elective cholecystectomy thank you A gallstone is seen within the gallbladder. The gallbladder is distended but the wall does not appear to be thickened. The common bile duct is mildly dilated, measuring up to 10 mm diameter. No downstream obstructive lesion demonstrated, however. There is mild intrahepatic biliary ductal dilatation. The liver, pancreas, spleen, adrenals are unremarkable. The kidneys demonstrate mild bilateral hydronephrosis and proximal hydroureter, but the ureters gradually taper to normal caliber and no destructive lesion is demonstrated. The right kidney demonstrates a subcentimeter low-attenuation lesion which is too small to characterize. No pelvic mass or adenopathy. Uterus and adnexal structures appear unremarkable. Lack of enteric contrast limits assessment of the GI tract. The appendix is normal. There is colonic diverticulosis. No evidence of acute diverticulitis. No small bowel distention. No free or loculated intraperitoneal gas or fluid is evident. The distal esophagus, stomach, duodenum are unremarkable. The included lung bases demonstrate posterior dependent atelectatic changes. The bones demonstrate degenerative spondylosis changes. Impression: Cholelithiasis. Distended gallbladder without gallbladder wall thickening Extrahepatic and mild central intrahepatic biliary ductal dilatation, without evidence of downstream destructive lesion. Possibly age related. Correlate with liver function tests, consider MRCP for further evaluation if clinically indicated Mild bilateral hydronephrosis and proximal hydroureter without evidence of downstream obstruction lesion. Significance/etiology uncertain. Colonic diverticulosis. No evidence of diverticulitis Findings noted, including degenerative spondylosis, basilar pulmonary pa renchymal dependent atelectasis, probable small subcentimeter right renal cyst (4) Cholecystitis Almas Posadas Jul 21, 2020 13:49
--- NOTE | 2020-07-21 15:20 | NUR ---
CASE MANAGEMENT:REVIEW 74 YR OLD FEMALE PRESENTED TO ER FROM HOME CC; RUQ ABDOMINAL PAIN SI: ACUTE PANCREATITIS 98.2 92 17 94/57 95% ON RA WBC+11.3 IS: 1L NS BOLUS X1 IV ZOFRAN X1 IV MORPHINE X1 : TO MED/SURG UNIT DCP: FROM HOME
[2020-07-21 16:00] VITALS: BP 140/67
--- NOTE | 2020-07-21 19:24 | NUR ---
NURSE HAND-OFF: Important Events on Shift:[safety and comfort, awaiting PCR results] Patient Status: [stable] Diet: [regular] Pending Orders: [] Pending Results/Labs:[] Pending MD notification:[] Latest Vital Signs: Temperature 98.4 , Pulse 70 , B/P 140 /67 , Respiratory Rate 17 , O2 SAT 96 , Room Air, O2 Flow Rate . Vital Sign Comment: [] Latest Dejesus Fall Score: 20 Fall Risk: Low Risk Safety Measures: Call light Within Reach, Bed Alarm Zone 1, Side Rails Side Rails x2, Bed position Low and Locked. Fall Precautions: Patient Fall Education Report given to [[facility] [place]].
--- NOTE | 2020-07-21 19:30 | NUR ---
NURSE NOTES: Received patient awake in bed, AOx4, ukrainian speaking, no s/s of acute distress. Witnessed to have steady gait, walking in room. Bed low and locked, patient wearing non slip socks and shoes. IV access asymptomatic, running IVF maintenance.
[2020-07-21 20:00] VITALS: BP 126/63
[2020-07-22] VITALS: BP 136/71
[2020-07-22 04:00] VITALS: BP 142/73
[2020-07-22] MEDS: Piperacillin/Tazobactam 3.375 GM in NS 110 ML IVPB SCH ×3 (05:27→22:20)
--- NOTE | 2020-07-22 06:43 | Hematology/Onc Progress Note ---
Assessment/Plan Assessment/Plan Assessment/Plan # Left-sided breast cancer and had recent mastectomy approximate 1 year ago --> periodical surveillance with mammo --> consider mri as needed based on resection --> outpatient eval # Thrombocytopenia r/o infection --> as per id recs --> neutropenic precautions -> hep and hiv ordered --> transfuse prn ==> PLT 127 # Coagulopathy likely reactive process --> pt elevated # Abdominal pain biliary v renal colic --> as per surg recs --> imaging as needed # Dvt ppx lovenox sq Appreciate consultation and sury RN Subjective Constitutional: Denies: no symptoms, chills, fever, malaise, weakness, other HEENT: Denies: no symptoms, eye pain, blurred vision, tearing, double vision, ear pain, ear discharge, nose pain, nose congestion, throat pain, throat swelling, mouth pain, mouth swelling, other Cardiovascular: Denies: no symptoms, chest pain, edema, irregular heart rate, lightheadedness, palpitations, syncope, other Genitourinary: Denies: no symptoms, burning, discharge, frequency, flank pain, hematuria, incontinence, pain, urgency, other Neurologic/Psychiatric: Denies: no symptoms, anxiety, depressed, emotional problems, headache, numbness, paresthesia, pre-existing deficit, seizure, tingling, tremors, weakness, other Endocrine: Denies: no symptoms, excessive sweating, flushing, intolerance to cold, intolerance to heat, increased hunger, increased thirst, increased urine, unexplained weight gain, unexplained weight loss, other Hematologic/Lymphatic: Denies: no symptoms, anemia, easy bleeding, easy bruising, adenopathy, other Allergies: Coded Allergies: No Known Allergies (Unverified , 01/02/19) Subjective 2/4 meds noted, no bleeding, labs reviewed, sury rn Objective Objective Current Medications Medications (Trade) Dose Ordered Sig/Perez Route PRN Reason Start Time Stop Time Status Last Admin Dose Admin Acetaminophen (Tylenol) 650 mg Q4H PRN ORAL Temp >100.5 07/20/20 15:00 08/19/20 14:59 07/20/20 15:32 Al Hydroxide/Mg Hydroxide (Mylanta II) 30 ml Q6H PRN ORAL dyspepsia 07/20/20 15:00 08/19/20 14:59 Bisacodyl (Dulcolax) 10 mg HSPRN PRN RECTAL Constipation 07/20/20 15:00 10/18/20 14:59 Dextrose (Dextrose 50%) 25 ml Q30M PRN IV Hypoglycemia 07/20/20 15:00 10/18/20 14:59 Dextrose (Dextrose 50%) 50 ml Q30M PRN IV Hypoglycemia 07/20/20 15:00 10/18/20 14:59 Diphenhydramine HCl (Benadryl) 25 mg Q6H PRN ORAL Itching/Pruritis 07/20/20 15:00 08/19/20 14:59 Docusate Sodium (Colace) 100 mg EVERY 12 HOURS ORAL 07/20/20 21:00 08/19/20 20:59 07/21/20 20:22 Iohexol (OMNIPAQUE-300 100ml) 100 ml NOW PRN INJ Radiology Procedure 07/20/20 13:30 07/22/20 13:29 Magnesium Hydroxide (Mom) 30 ml HSPRN PRN ORAL Constipation 07/20/20 15:00 08/19/20 14:59 Morphine Sulfate (Morphine Sulfate) 2 mg Q4H PRN IVP Moderate Pain (Pain Scale 4-6) 07/20/20 15:00 07/27/20 14:59 Ondansetron HCl (Zofran) 4 mg Q6H PRN IVP Nausea & Vomiting 07/20/20 15:00 08/19/20 14:59 Pantoprazole (Protonix) 40 mg DAILY IV 07/21/20 09:00 08/20/20 08:59 07/21/20 08:57 Piperacillin Sod/ Tazobactam Sod 3.375 gm/Sodium Chloride 110 ml @ 27.5 mls/hr EVERY 8 HOURS IVPB 07/20/20 16:00 07/25/20 15:59 07/22/20 05:27 Sodium Chloride 1,000 ml @ 75 mls/hr [id number] IVLG 07/20/20 16:00 08/19/20 15:59 07/21/20 17:40 Temazepam (Restoril) 15 mg HSPRN PRN ORAL Insomnia 07/20/20 21:00 07/27/20 20:59 07/22/20 00:29 Last 24 Hour Vital Signs Date Time Temp Pulse Resp B/P (MAP) Pulse Ox O2 Delivery O2 Flow Rate FiO2 07/22/20 04:00 97.7 78 18 142/73 (96) 98 07/22/20 00:00 97.6 72 18 136/71 (92) 98 07/21/20 21:51 Room Air 07/21/20 20:00 97.4 69 18 126/63 (84) 97 07/21/20 16:00 98.4 70 17 140/67 (91) 96 07/21/20 12:00 97.5 75 17 118/62 (80) 96 07/21/20 09:00 Room Air 07/21/20 08:00 97.9 75 17 114/55 (74) 96 07/21/20 04:00 98.2 76 17 117/40 (65) 96 07/21/20 00:00 98.1 66 16 113/55 (74) 96 07/20/20 21:00 Room Air 07/20/20 20:00 98.6 76 17 109/41 (63) 96 07/20/20 16:02 99.5 07/20/20 16:00 99.5 89 20 150/52 (84) 89 07/20/20 14:39 Room Air 07/20/20 14:00 98.2 67 18 134/78 100 Room Air 07/20/20 13:28 67 18 134/78 100 Room Air 07/20/20 10:56 77 18 110/45 98 Room Air 07/20/20 09:47 98.2 07/20/20 09:28 87 18 Room Air 07/20/20 09:17 81 18 115/48 99 Room Air 07/20/20 08:53 98.2 92 17 94/57 (69) 95 Room Air Intake and Output 07/21/20 07/22/20 19:00 07:00 Intake Total 1320 ml Balance 1320 ml Intake Oral 1320 ml # Voids 1 Labs Test 07/20/20 09:08 07/20/20 13:25 07/21/20 06:37 White Blood Count 11.3 K/UL (4.8-10.8) 6.4 K/UL (4.8-10.8) Red Blood Count 5.04 M/UL (4.20-5.40) 4.34 M/UL (4.20-5.40) Hemoglobin 14.2 G/DL (12.0-16.0) 12.3 G/DL (12.0-16.0) Hematocrit 43.5 % (37.0-47.0) 37.2 % (37.0-47.0) Mean Corpuscular Volume 86 FL (80-99) 86 FL (80-99) Mean Corpuscular Hemoglobin 28.1 PG (27.0-31.0) 28.2 PG (27.0-31.0) Mean Corpuscular Hemoglobin Concent 32.6 G/DL (32.0-36.0) 32.9 G/DL (32.0-36.0) Red Cell Distribution Width 12.1 % (11.6-14.8) 12.3 % (11.6-14.8) Platelet Count 129 K/UL (150-450) 114 K/UL (150-450) Mean Platelet Volume 6.7 FL (6.5-10.1) 7.5 FL (6.5-10.1) Neutrophils (%) (Auto) % (45.0-75.0) 75.1 % (45.0-75.0) Lymphocytes (%) (Auto) % (20.0-45.0) 10.7 % (20.0-45.0) Monocytes (%) (Auto) % (1.0-10.0) 11.4 % (1.0-10.0) Eosinophils (%) (Auto) % (0.0-3.0) 0.6 % (0.0-3.0) Basophils (%) (Auto) % (0.0-2.0) 2.2 % (0.0-2.0) Differential Total Cells Counted 100 Neutrophils % (Manual) 91 % (45-75) Lymphocytes % (Manual) 5 % (20-45) Monocytes % (Manual) 4 % (1-10) Eosinophils % (Manual) 0 % (0-3) Basophils % (Manual) 0 % (0-2) Band Neutrophils 0 % (0-8) Platelet Estimate Adequate Platelet Morphology Normal Red Blood Cell Morphology Normal Prothrombin Time 12.0 SEC (9.30-11.50) 12.0 SEC (9.30-11.50) Prothromb Time International Ratio 1.1 (0.9-1.1) 1.1 (0.9-1.1) Activated Partial Thromboplast Time 26 SEC (23-33) 30 SEC (23-33) Sodium Level 135 MMOL/L (136-145) 139 MMOL/L (136-145) Potassium Level 3.7 MMOL/L (3.5-5.1) 3.8 MMOL/L (3.5-5.1) Chloride Level 100 MMOL/L (98-107) 106 MMOL/L (98-107) Carbon Dioxide Level 24 MMOL/L (21-32) 24 MMOL/L (21-32) Anion Gap 11 mmol/L (5-15) 9 mmol/L (5-15) Blood Urea Nitrogen 10 mg/dL (7-18) 10 mg/dL (7-18) Creatinine 1.1 MG/DL (0.55-1.30) 1.0 MG/DL (0.55-1.30) Estimat Glomerular Filtration Rate 48.7 mL/min (>60) 54.3 mL/min (>60) Glucose Level 138 MG/DL (74-106) 87 MG/DL (74-106) Calcium Level 9.9 MG/DL (8.5-10.1) 9.1 MG/DL (8.5-10.1) Total Bilirubin 1.4 MG/DL (0.2-1.0) 0.8 MG/DL (0.2-1.0) Direct Bilirubin 0.5 MG/DL (0.0-0.3) Aspartate Amino Transf (AST/SGOT) 335 U/L (15-37) 127 U/L (15-37) Alanine Aminotransferase (ALT/SGPT) 452 U/L (12-78) 257 U/L (12-78) Alkaline Phosphatase 321 U/L (46-116) 224 U/L (46-116) Troponin I 0.000 ng/mL (0.000-0.056) Total Protein 7.4 G/DL (6.4-8.2) 6.3 G/DL (6.4-8.2) Albumin 3.9 G/DL (3.4-5.0) 3.1 G/DL (3.4-5.0) Globulin 3.5 g/dL 3.2 g/dL Albumin/Globulin Ratio 1.1 (1.0-2.7) 1.0 (1.0-2.7) Lipase 79 U/L (73-393) Urine Color Yellow Urine Appearance Clear Urine pH 6.5 (4.5-8.0) Urine Specific [place] 1.005 (1.005-1.035) Urine Protein Negative (NEGATIVE) Urine Glucose (UA) Negative (NEGATIVE) Urine Ketones Negative (NEGATIVE) Urine Blood 2+ (NEGATIVE) Urine Nitrite Negative (NEGATIVE) Urine Bilirubin Negative (NEGATIVE) Urine Urobilinogen Normal MG/DL (0.0-1.0) Urine Leukocyte Esterase Negative (NEGATIVE) Urine RBC 0-2 /HPF (0 - 2) Urine WBC 0-2 /HPF (0 - 2) Urine Squamous Epithelial Cells Occasional /LPF Urine Bacteria Occasional /HPF (NONE) Height (Feet): 5 Height (Inches): 3.00 Weight (Pounds): 160 Objective General appearance: alert, cooperative, no distress, appears stated age HEENT: nc, at Neck: supple, symmetrical, trachea midline, no adenopathy Lungs: clear to auscultation bilaterally Heart: regular rate and rhythm, S1, S2 normal, no murmur, click, rub or gallop Abdomen: soft, non-tender. ++ right flank tender Extremities: extremities normal, atraumatic, no cyanosis or edema Pulses: 2+ and symmetric Skin: Skin color, texture, turgor normal Neurologic: Grossly normal Kentrell Richard MD Jul 22, 2020 06:43
--- NOTE | 2020-07-22 07:30 | NUR ---
NURSE NOTES: Patient is in bed awake and able to verbalize needs. Stable. No visible signs of distress noted. Respirations are even and unlabored. Patient instructed to use call light for assistance, verbalized understanding. Patient is in bed in locked and lowest position with lena lig Addendum: 07/22/20 at 0957 by GUS JOYA RN NURSE NOTES: Patient is in bed in locked and lowest position with call light within reach.
[2020-07-22 08:00] VITALS: BP 122/65
[2020-07-22] MEDS: Pantoprazole Inj IV SCH (08:23)
[2020-07-22] MEDS: Docusate 100mg cap ORAL SCH ×2 (08:24→22:20)
--- NOTE | 2020-07-22 08:30 | Surgery Progress Note ---
Surgery Progress Note Subjective Additional Comments afebrile, HD stable labs noted micro reviewed comfortable appearing no n/v Objective Last 24 Hour Vital Signs Date Time Temp Pulse Resp B/P (MAP) Pulse Ox O2 Delivery O2 Flow Rate FiO2 07/22/20 04:00 97.7 78 18 142/73 (96) 98 07/22/20 00:00 97.6 72 18 136/71 (92) 98 07/21/20 21:51 Room Air 07/21/20 20:00 97.4 69 18 126/63 (84) 97 07/21/20 16:00 98.4 70 17 140/67 (91) 96 07/21/20 12:00 97.5 75 17 118/62 (80) 96 07/21/20 09:00 Room Air I&O Intake and Output 07/21/20 07/22/20 19:00 07:00 Intake Total 1320 ml Balance 1320 ml Intake Oral 1320 ml # Voids 1 Cardiovascular: RSR Respiratory: clear Abdomen: soft, non-tender, present bowel sounds, non-distended Extremities: no edema, no tenderness, no cyanosis Plan Problems: (1) Herpes zoster (2) Acute pancreatitis (3) Elevated liver function tests Assessment & Plan: 74-year-old female presenting with right upper quadrant abdominal pain flank pain pain. No nausea vomit fever chills at this time. Labs noted elevated LFTs. Lipase normal. Ultrasound noted. CT pending. On examination flank pain mild nominal discomfort. Need further imaging to continue to assess patient. No acute surgical invention urgently from the emergency department. Labs ordered imaging ordered differential potential renal versus biliary versus hepatic. Will follow with examination and recommendations. Thank you let me participation's care. N.p.o. IV fluids pain improved no n/v comfortable CT noted okay for diet no acute surgical intervention planned outpatient f/u for elective cholecystectomy thank you A gallstone is seen within the gallbladder. The gallbladder is distended but the wall does not appear to be thickened. The common bile duct is mildly dilated, measuring up to 10 mm diameter. No downstream obstructive lesion demonstrated, however. There is mild intrahepatic biliary ductal dilatation. The liver, pancreas, spleen, adrenals are unremarkable. The kidneys demonstrate mild bilateral hydronephrosis and proximal hydroureter, but the ureters gradually taper to normal caliber and no destructive lesion is demonstrated. The right kidney demonstrates a subcentimeter low-attenuation lesion which is too small to characterize. No pelvic mass or adenopathy. Uterus and adnexal structures appear unremarkable. Lack of enteric contrast limits assessment of the GI tract. The appendix is normal. There is colonic diverticulosis. No evidence of acute diverticulitis. No small bowel distention. No free or loculated intraperitoneal gas or fluid is evident. The distal esophagus, stomach, duodenum are unremarkable. The included lung bases demonstrate posterior dependent atelectatic changes. The bones demonstrate degenerative spondylosis changes. Impression: Cholelithiasis. Distended gallbladder without gallbladder wall thickening Extrahepatic and mild central intrahepatic biliary ductal dilatation, without evidence of downstream destructive lesion. Possibly age related. Correlate with liver function tests, consider MRCP for further evaluation if clinically indicated Mild bilateral hydronephrosis and proximal hydroureter without evidence of downstream obstruction lesion. Significance/etiology uncertain. Colonic diverticulosis. No evidence of diverticulitis Findings noted, including degenerative spondylosis, basilar pulmonary parenchyma l dependent atelectasis, probable small subcentimeter right renal cyst (4) Cholecystitis Almas Posadas Jul 22, 2020 08:30
--- NOTE | 2020-07-22 09:08 | Infectious Diseases Prog Note ---
Assessment/Plan 74yo F with: Afebrile Leukocytosis to 11, improved RUQ pain, c/f acute cholecystitis Elevated LFTs to 335 / 452, improving 2/2 BCx NTD UA neg COVID PCR neg CXR: No acute process CT A/P: Cholelithiasis. Distended gallbladder without gallbladder wall thickening. Extrahepatic and mild central intrahepatic biliary ductal dilatation, without evidence of downstream destructive lesion. Mild bilateral hydronephrosis and proximal hydroureter without evidence of downstream obstruction lesion. Significance/etiology uncertain. Cr 1.0 HIV screen neg Acute hep panel neg PMH: Gallstones L sided breast CA s/p mastectomy 1 year ago Plan: Cont Zosyn #3 Appreciate Gen Surg, GI input on possible acute cholecystitis and if intervention warranted at this time Trend LFTs Monitor CBC/CMP Monitor temp curve, hemodynamics Monitor resp status D/w RN Thank you for this consult. [facility] will continue to follow. Subjective Allergies: Coded Allergies: No Known Allergies (Unverified , 01/02/19) AF NAD on RA Still w/ RUQ pain, mild Objective Last 24 Hour Vital Signs Date Time Temp Pulse Resp B/P (MAP) Pulse Ox O2 Delivery O2 Flow Rate FiO2 07/22/20 04:00 97.7 78 18 142/73 (96) 98 07/22/20 00:00 97.6 72 18 136/71 (92) 98 07/21/20 21:51 Room Air 07/21/20 20:00 97.4 69 18 126/63 (84) 97 07/21/20 16:00 98.4 70 17 140/67 (91) 96 07/21/20 12:00 97.5 75 17 118/62 (80) 96 Height (Feet): 5 Height (Inches): 3.00 Weight (Pounds): 160 Gen: NAD HEENT: NCAT Pulm: BL chest rise on RA Abd: Soft, mildly TTP in RUQ, no rebound/guarding Ext: No c/c/e Skin: No visible rashes Neuro: Awake, interactive in [employer] Date/Time Source Procedure Growth Status 07/20/20 17:15 Blood Blood Culture - Preliminary NO GROWTH AFTER 24 HOURS Resulted 07/20/20 17:00 Blood Blood Culture - Preliminary NO GROWTH AFTER 24 HOURS Resulted 07/20/20 16:10 Nasopharynx Coronavirus COVID-19 PCR ([facility]) - Final Complete Current Medications Medications (Trade) Dose Ordered Sig/Perez Route PRN Reason Start Time Stop Time Status Last Admin Dose Admin Acetaminophen (Tylenol) 650 mg Q4H PRN ORAL Temp >100.5 07/20/20 15:00 08/19/20 14:59 07/20/20 15:32 Al Hydroxide/Mg Hydroxide (Mylanta II) 30 ml Q6H PRN ORAL dyspepsia 07/20/20 15:00 08/19/20 14:59 Bisacodyl (Dulcolax) 10 mg HSPRN PRN RECTAL Constipation 07/20/20 15:00 10/18/20 14:59 Dextrose (Dextrose 50%) 25 ml Q30M PRN IV Hypoglycemia 07/20/20 15:00 10/18/20 14:59 Dextrose (Dextrose 50%) 50 ml Q30M PRN IV Hypoglycemia 07/20/20 15:00 10/18/20 14:59 Diphenhydramine HCl (Benadryl) 25 mg Q6H PRN ORAL Itching/Pruritis 07/20/20 15:00 08/19/20 14:59 Docusate Sodium (Colace) 100 mg EVERY 12 HOURS ORAL 07/20/20 21:00 08/19/20 20:59 07/22/20 08:24 Iohexol (OMNIPAQUE-300 100ml) 100 ml NOW PRN INJ Radiology Procedure 07/20/20 13:30 07/22/20 13:29 Magnesium Hydroxide (Mom) 30 ml HSPRN PRN ORAL Constipation 07/20/20 15:00 08/19/20 14:59 Morphine Sulfate (Morphine Sulfate) 2 mg Q4H PRN IVP Moderate Pain (Pain Scale 4-6) 07/20/20 15:00 07/27/20 14:59 Ondansetron HCl (Zofran) 4 mg Q6H PRN IVP Nausea & Vomiting 07/20/20 15:00 08/19/20 14:59 Pantoprazole (Protonix) 40 mg DAILY IV 07/21/20 09:00 08/20/20 08:59 07/22/20 08:23 Piperacillin Sod/ Tazobactam Sod 3.375 gm/Sodium Chloride 110 ml @ 27.5 mls/hr EVERY 8 HOURS IVPB 07/20/20 16:00 07/25/20 15:59 07/22/20 05:27 Sodium Chloride 1,000 ml @ 75 mls/hr [id number] IVLG 07/20/20 16:00 08/19/20 15:59 07/22/20 08:23 Temazepam (Restoril) 15 mg HSPRN PRN ORAL Insomnia 07/20/20 21:00 07/27/20 20:59 07/22/20 00:29 Jessie Tao M.D. Jul 22, 2020 09:08
[2020-07-22 09:52] LABS: BASOPHILS % (AUTO) 0.9 % (0.0-2.0); EOSINOPHILS % (AUTO) 3.6 % (0.0-3.0); HEMATOCRIT 36.4 % (37.0-47.0); HEMOGLOBIN 11.8 G/DL (12.0-16.0); LYMPHOCYTES % (AUTO) 29.8 % (20.0-45.0); MEAN CORPUSCULAR VOLUME 88 FL (80-99); MONOCYTES % (AUTO) 13.6 % (1.0-10.0); NEUTROPHILS % (AUTO) 52.2 % (45.0-75.0); PLATELET COUNT 117 K/UL (150-450); RED BLOOD COUNT 4.12 M/UL (4.20-5.40); RED CELL DISTRIBUTION WIDTH 12.4 % (11.6-14.8); WHITE BLOOD COUNT 3.9 K/UL (4.8-10.8)
[2020-07-22 10:44] LABS: ALANINE AMINOTRANSFERASE 230 U/L (12-78); ALBUMIN 2.8 G/DL (3.4-5.0); ALBUMIN/GLOBULIN RATIO 0.9 (1.0-2.7); ALKALINE PHOSPHATASE 257 U/L (46-116); ANION GAP 8 mmol/L (5-15); ASPARTATE AMINO TRANSFERASE 178 U/L (15-37); BILIRUBIN,TOTAL 1.3 MG/DL (0.2-1.0); BLOOD UREA NITROGEN 8 mg/dL (7-18); CALCIUM 9.1 MG/DL (8.5-10.1); CARBON DIOXIDE 26 MMOL/L (21-32); CHLORIDE 109 MMOL/L (98-107); CREATININE 0.8 MG/DL (0.55-1.30); POTASSIUM 3.6 MMOL/L (3.5-5.1); SODIUM 143 MMOL/L (136-145)
[2020-07-22 12:00] VITALS: BP 131/70
--- NOTE | 2020-07-22 12:32 | General Progress Note ---
Subjective Constitutional: Reports: weakness Allergies: Coded Allergies: No Known Allergies (Unverified , 01/02/19) All Systems: reviewed and negative except above Subjective calm in bed Objective Last 24 Hour Vital Signs Date Time Temp Pulse Resp B/P (MAP) Pulse Ox O2 Delivery O2 Flow Rate FiO2 07/22/20 09:00 Room Air 07/22/20 08:00 98.0 74 18 122/65 (84) 96 07/22/20 04:00 97.7 78 18 142/73 (96) 98 07/22/20 00:00 97.6 72 18 136/71 (92) 98 07/21/20 21:51 Room Air 07/21/20 20:00 97.4 69 18 126/63 (84) 97 07/21/20 16:00 98.4 70 17 140/67 (91) 96 Intake and Output 07/21/20 07/22/20 19:00 07:00 Intake Total 1320 ml Balance 1320 ml Intake Oral 1320 ml # Voids 1 Laboratory Tests 07/22/20 08:50: White Blood Count 3.9L, Red Blood Count 4.12L, Hemoglobin 11.8L, Hematocrit 36.4L, Mean Corpuscular Volume 88, Mean Corpuscular Hemoglobin 28.6, Mean Corpuscular Hemoglobin Concent 32.4, Red Cell Distribution Width 12.4, Platelet Count 117L, Mean Platelet Volume 6.8, Neutrophils (%) (Auto) 52.2, Lymphocytes (%) (Auto) 29.8, Monocytes (%) (Auto) 13.6H, Eosinophils (%) (Auto) 3.6H, Basophils (%) (Auto) 0.9, Sodium Level 143, Potassium Level 3.6, Chloride Level 109H, Carbon Dioxide Level 26, Anion Gap 8, Blood Urea Nitrogen 8, Creatinine 0.8, Estimat Glomerular Filtration Rate > 60, Glucose Level 94, Calcium Level 9.1, Total Bilirubin 1.3H, Direct Bilirubin 1.0H, Aspartate Amino Transf (AST/SGOT) 178H, Alanine Aminotransferase (ALT/SGPT) 230H, Alkaline Phosphatase 257H, Total Protein 6.0L, Albumin 2.8L, Globulin 3.2, Albumin/Globulin Ratio 0.9L Height (Feet): 5 Height (Inches): 3.00 Weight (Pounds): 160 General Appearance: lethargic EENT: normal ENT inspection Neck: normal alignment Cardiovascular: normal peripheral pulses, normal rate, regular rhythm Respiratory/Chest: chest wall non-tender, lungs clear, normal breath sounds Abdomen: normal bowel sounds, non tender, soft Extremities: normal inspection Edema: no edema noted Arm (L), no edema noted Arm (R), no edema noted Leg (L), no edema noted Leg (R), no edema noted Pedal (L), no edema noted Pedal (R), no edema noted Generalized Neurologic: motor weakness Skin: normal pigmentation, warm/dry Assessment/Plan Problem List: (1) Gallstone ICD Codes: K80.20 - Calculus of gallbladder without cholecystitis without obstruction SNOMED: 365661764 (2) Abdominal pain ICD Codes: R10.9 - Unspecified abdominal pain SNOMED: 74258953 (3) Breast cancer ICD Codes: C50.919 - Malignant neoplasm of unspecified site of unspecified female breast SNOMED: 164074081 (4) Herpes zoster ICD Codes: B02.9 - Zoster without complications SNOMED: 4568489 (5) Elevated liver function tests ICD Codes: R79.89 - Other specified abnormal findings of blood chemistry SNOMED: 437482344, 240019368 (6) Cholecystitis ICD Codes: K81.9 - Cholecystitis, unspecified SNOMED: 70992862 (7) Acute pancreatitis ICD Codes: K85.90 - Acute pancreatitis without necrosis or infection, unspecified SNOMED: 244580031, 996021034 Status: unchanged Assessment/Plan: gi sx f/u pain control cbc bmp Jameson Barrera DO Jul 22, 2020 12:32
--- NOTE | 2020-07-22 14:56 | General Progress Note ---
Subjective ROS Limited/Unobtainable: Yes Allergies: Coded Allergies: No Known Allergies (Unverified , 01/02/19) Objective Last 24 Hour Vital Signs Date Time Temp Pulse Resp B/P (MAP) Pulse Ox O2 Delivery O2 Flow Rate FiO2 07/22/20 12:00 98.4 61 18 131/70 (90) 100 07/22/20 09:00 Room Air 07/22/20 08:00 98.0 74 18 122/65 (84) 96 07/22/20 04:00 97.7 78 18 142/73 (96) 98 07/22/20 00:00 97.6 72 18 136/71 (92) 98 07/21/20 21:51 Room Air 07/21/20 20:00 97.4 69 18 126/63 (84) 97 07/21/20 16:00 98.4 70 17 140/67 (91) 96 Intake and Output 07/21/20 07/22/20 19:00 07:00 Intake Total 1320 ml Balance 1320 ml Intake Oral 1320 ml # Voids 1 Laboratory Tests 07/22/20 08:50: White Blood Count 3.9L, Red Blood Count 4.12L, Hemoglobin 11.8L, Hematocrit 36.4L, Mean Corpuscular Volume 88, Mean Corpuscular Hemoglobin 28.6, Mean Corpuscular Hemoglobin Concent 32.4, Red Cell Distribution Width 12.4, Platelet Count 117L, Mean Platelet Volume 6.8, Neutrophils (%) (Auto) 52.2, Lymphocytes (%) (Auto) 29.8, Monocytes (%) (Auto) 13.6H, Eosinophils (%) (Auto) 3.6H, Basophils (%) (Auto) 0.9, Sodium Level 143, Potassium Level 3.6, Chloride Level 109H, Carbon Dioxide Level 26, Anion Gap 8, Blood Urea Nitrogen 8, Creatinine 0.8, Estimat Glomerular Filtration Rate > 60, Glucose Level 94, Calcium Level 9.1, Total Bilirubin 1.3H, Direct Bilirubin 1.0H, Aspartate Amino Transf (AST/SGOT) 178H, Alanine Aminotransferase (ALT/SGPT) 230H, Alkaline Phosphatase 257H, Total Protein 6.0L, Albumin 2.8L, Globulin 3.2, Albumin/Globulin Ratio 0.9L Height (Feet): 5 Height (Inches): 3.00 Weight (Pounds): 160 General Appearance: no apparent distress EENT: normal ENT inspection Neck: supple Cardiovascular: normal rate Respiratory/Chest: decreased breath sounds Abdomen: normal bowel sounds, non tender, soft Extremities: non-tender Assessment/Plan Problem List: (1) Herpes zoster ICD Codes: B02.9 - Zoster without complications SNOMED: 9832295 (2) Elevated liver function tests ICD Codes: R79.89 - Other specified abnormal findings of blood chemistry SNOMED: 617700800, 721526596 (3) Cholecystitis ICD Codes: K81.9 - Cholecystitis, unspecified SNOMED: 73923590 (4) Acute pancreatitis ICD Codes: K85.90 - Acute pancreatitis without necrosis or infection, unspecified SNOMED: 939013574, 689975527 (5) Gallstone ICD Codes: K80.20 - Calculus of gallbladder without cholecystitis without obstruction SNOMED: 826213645 (6) Breast cancer ICD Codes: C50.919 - Malignant neoplasm of unspecified site of unspecified female breast SNOMED: 579245108 (7) Abdominal pain ICD Codes: R10.9 - Unspecified abdominal pain SNOMED: 43174774 Status: unchanged Assessment/Plan: abx plan MRCP repeat labs fi surg recs ERCP if needed Trenton Teresa MD Jul 22, 2020 14:56
--- NOTE | 2020-07-22 15:39 | NUR ---
CASE MANAGEMENT:REVIEW 07/22/20 SI: ACUTE PANCREATITIS. HERPES ZOSTER 98.4 61 18 131/70 100% ON RA TBILI+1.3 DBILI+1.0 AST/ALT+178/230 IS: IV ZOSYN Q8HRS IVF@75/HR IV PROTONIX QD : MED/SURG STATUS DCP: FROM HOME PLAN: MRI ABDOMEN START REGULAR DIET
[2020-07-22 16:00] VITALS: BP 129/70
--- NOTE | 2020-07-22 17:42 | Diagnostic Imaging Report ---
EXAM: MRI MRI Abdomen no Contrast TECHNIQUE: MR examination of the abdomen includes coronal T1 and fat-suppressed T2, axial T1 in and out of phase spoiled gradient sequences, and T2 sequences with and without fat suppression. Coronal MRCP sequence also obtained. CLINICAL HISTORY: Abdomen pain. COMPARISON: CT and ultrasound abdomen 07/20/2020 FINDINGS: The liver and spleen appear homogeneous. Gallbladder is nondistended. Small layering stone noted near the neck. There is no intrahepatic ductal dilatation. CBD measures 8 mm with no filling defect demonstrated. The pancreas is unremarkable. Adrenals are normal. There are bilateral extrarenal pelvis and small parapelvic cysts noted. There is no signs of bowel distention. No ascites demonstrated. There is no adenopathy noted. Visualized portions of the lumbar spine appear unremarkable. IMPRESSION: SMALL LAYERING GALLSTONE IN THE GALLBLADDER. NO DISTENTION OR SURROUNDING INFLAMMATION DEMONSTRATED. CBD SLIGHTLY PROMINENT BUT MAY BE AGE-RELATED. NO FILLING DEFECT OR DUCTAL STONE SEEN.
--- NOTE | 2020-07-22 19:34 | NUR ---
NURSE HAND-OFF: Report given to Neil RN.
[2020-07-22 20:00] VITALS: BP 138/75
--- NOTE | 2020-07-22 20:30 | NUR ---
NURSE NOTES: Pt is in bed, awake and verbal. Pt is Faroese speaking. No acute distress noted. Vitas stable. No SOB. Pt reports no pain at this time. IV antibiotics will be given as ordered. Fall precautions in place. Bed locked low in position,side rails up and call light within reach. Pt will be monitored.
[2020-07-23] VITALS: BP 141/98
[2020-07-23 04:00] VITALS: BP 151/78
[2020-07-23] MEDS: Piperacillin/Tazobactam 3.375 GM in NS 110 ML IVPB SCH ×3 (06:05→21:16)
--- NOTE | 2020-07-23 06:30 | NUR ---
NURSE NOTES: Pt is in bed, awake and verbal. No acute distress noted.
--- NOTE | 2020-07-23 06:49 | Hematology/Onc Progress Note ---
Assessment/Plan Assessment/Plan Assessment/Plan # Left-sided breast cancer and had recent mastectomy approximate 1 year ago --> periodical surveillance with mammo --> consider mri as needed based on resection --> outpatient eval # Pancytopenia with initially Thrombocytopenia r/o infection --> as per id recs --> neutropenic precautions -> hep and hiv ordered --> transfuse prn --> wbc 3.9 --> hgb 11.8 ==> PLT 127-->117 # Coagulopathy likely reactive process --> pt elevated # Abdominal pain biliary v renal colic --> as per surg recs --> imaging as needed # Dvt ppx lovenox sq Appreciate consultation and sury RN Subjective HEENT: Denies: no symptoms, eye pain, blurred vision, tearing, double vision, ear pain, ear discharge, nose pain, nose congestion, throat pain, throat swelling, mouth pain, mouth swelling, other Cardiovascular: Denies: no symptoms, chest pain, edema, irregular heart rate, lightheadedness, palpitations, syncope, other Respiratory: Denies: no symptoms, cough, shortness of breath, SOB with excertion, SOB at rest, sputum, wheezing, other Gastrointestinal/Abdominal: Denies: no symptoms, abdomen distended, abdominal pain, black stools, tarry stools, blood in stool, constipated, diarrhea, difficulty swallowing, nausea, poor appetite, poor fluid intake, rectal bleeding, vomiting, other Genitourinary: Denies: no symptoms, burning, discharge, frequency, flank pain, hematuria, incontinence, pain, urgency, other Neurologic/Psychiatric: Denies: no symptoms, anxiety, depressed, emotional problems, headache, numbness, paresthesia, pre-existing deficit, seizure, tingling, tremors, weakness, other Endocrine: Denies: no symptoms, excessive sweating, flushing, intolerance to cold, intolerance to heat, increased hunger, increased thirst, increased urine, unexplained weight gain, unexplained weight loss, other Hematologic/Lymphatic: Denies: no symptoms, anemia, easy bleeding, easy bruising, adenopathy, other Allergies: Coded Allergies: No Known Allergies (Unverified , 01/02/19) Subjective 2/4 meds noted, no bleeding, labs reviewed, sury rn 2/ mri of the abd reviewed, with a gb stone noted, no night sweats, plt 117 Objective Objective Current Medications Medications (Trade) Dose Ordered Sig/Perez Route PRN Reason Start Time Stop Time Status Last Admin Dose Admin Acetaminophen (Tylenol) 650 mg Q4H PRN ORAL Temp >100.5 07/20/20 15:00 08/19/20 14:59 07/20/20 15:32 Al Hydroxide/Mg Hydroxide (Mylanta II) 30 ml Q6H PRN ORAL dyspepsia 07/20/20 15:00 08/19/20 14:59 Bisacodyl (Dulcolax) 10 mg HSPRN PRN RECTAL Constipation 07/20/20 15:00 10/18/20 14:59 Dextrose (Dextrose 50%) 25 ml Q30M PRN IV Hypoglycemia 07/20/20 15:00 10/18/20 14:59 Dextrose (Dextrose 50%) 50 ml Q30M PRN IV Hypoglycemia 07/20/20 15:00 10/18/20 14:59 Diphenhydramine HCl (Benadryl) 25 mg Q6H PRN ORAL Itching/Pruritis 07/20/20 15:00 08/19/20 14:59 Docusate Sodium (Colace) 100 mg EVERY 12 HOURS ORAL 07/20/20 21:00 08/19/20 20:59 07/22/20 22:20 Magnesium Hydroxide (Mom) 30 ml HSPRN PRN ORAL Constipation 07/20/20 15:00 08/19/20 14:59 Morphine Sulfate (Morphine Sulfate) 2 mg Q4H PRN IVP Moderate Pain (Pain Scale 4-6) 07/20/20 15:00 07/27/20 14:59 07/23/20 06:05 Ondansetron HCl (Zofran) 4 mg Q6H PRN IVP Nausea & Vomiting 07/20/20 15:00 08/19/20 14:59 Pantoprazole (Protonix) 40 mg DAILY IV 07/21/20 09:00 08/20/20 08:59 07/22/20 08:23 Piperacillin Sod/ Tazobactam Sod 3.375 gm/Sodium Chloride 110 ml @ 27.5 mls/hr EVERY 8 HOURS IVPB 07/20/20 16:00 07/25/20 15:59 07/23/20 06:05 Sodium Chloride 1,000 ml @ 75 mls/hr [id number] IVLG 07/20/20 16:00 08/19/20 15:59 07/22/20 22:20 Temazepam (Restoril) 15 mg HSPRN PRN ORAL Insomnia 07/20/20 21:00 07/27/20 20:59 07/22/20 00:29 Last 24 Hour Vital Signs Date Time Temp Pulse Resp B/P (MAP) Pulse Ox O2 Delivery O2 Flow Rate FiO2 07/23/20 04:00 97.9 64 19 151/78 (102) 97 07/23/20 00:00 97.7 64 20 141/98 (112) 97 07/22/20 21:00 Room Air 07/22/20 20:00 97.9 65 17 138/75 (96) 97 07/22/20 16:00 97.8 63 20 129/70 (89) 98 07/22/20 12:00 98.4 61 18 131/70 (90) 100 07/22/20 09:00 Room Air 07/22/20 08:00 98.0 74 18 122/65 (84) 96 07/22/20 04:00 97.7 78 18 142/73 (96) 98 07/22/20 00:00 97.6 72 18 136/71 (92) 98 07/21/20 21:51 Room Air 07/21/20 20:00 97.4 69 18 126/63 (84) 97 07/21/20 16:00 98.4 70 17 140/67 (91) 96 07/21/20 12:00 97.5 75 17 118/62 (80) 96 07/21/20 09:00 Room Air 07/21/20 08:00 97.9 75 17 114/55 (74) 96 Intake and Output 07/22/20 07/23/20 19:00 07:00 Intake Total 915 ml 335.0 ml Balance 915 ml 335.0 ml Intake Oral 840 ml IV Total 75 ml 335.0 ml # Voids 6 3 Labs Test 07/20/20 09:08 07/20/20 13:25 07/21/20 06:37 07/22/20 08:50 White Blood Count 11.3 K/UL (4.8-10.8) 6.4 K/UL (4.8-10.8) 3.9 K/UL (4.8-10.8) Red Blood Count 5.04 M/UL (4.20-5.40) 4.34 M/UL (4.20-5.40) 4.12 M/UL (4.20-5.40) Hemoglobin 14.2 G/DL (12.0-16.0) 12.3 G/DL (12.0-16.0) 11.8 G/DL (12.0-16.0) Hematocrit 43.5 % (37.0-47.0) 37.2 % (37.0-47.0) 36.4 % (37.0-47.0) Mean Corpuscular Volume 86 FL (80-99) 86 FL (80-99) 88 FL (80-99) Mean Corpuscular Hemoglobin 28.1 PG (27.0-31.0) 28.2 PG (27.0-31.0) 28.6 PG (27.0-31.0) Mean Corpuscular Hemoglobin Concent 32.6 G/DL (32.0-36.0) 32.9 G/DL (32.0-36.0) 32.4 G/DL (32.0-36.0) Red Cell Distribution Width 12.1 % (11.6-14.8) 12.3 % (11.6-14.8) 12.4 % (11.6-14.8) Platelet Count 129 K/UL (150-450) 114 K/UL (150-450) 117 K/UL (150-450) Mean Platelet Volume 6.7 FL (6.5-10.1) 7.5 FL (6.5-10.1) 6.8 FL (6.5-10.1) Neutrophils (%) (Auto) % (45.0-75.0) 75.1 % (45.0-75.0) 52.2 % (45.0-75.0) Lymphocytes (%) (Auto) % (20.0-45.0) 10.7 % (20.0-45.0) 29.8 % (20.0-45.0) Monocytes (%) (Auto) % (1.0-10.0) 11.4 % (1.0-10.0) 13.6 % (1.0-10.0) Eosinophils (%) (Auto) % (0.0-3.0) 0.6 % (0.0-3.0) 3.6 % (0.0-3.0) Basophils (%) (Auto) % (0.0-2.0) 2.2 % (0.0-2.0) 0.9 % (0.0-2.0) Differential Total Cells Counted 100 Neutrophils % (Manual) 91 % (45-75) Lymphocytes % (Manual) 5 % (20-45) Monocytes % (Manual) 4 % (1-10) Eosinophils % (Manual) 0 % (0-3) Basophils % (Manual) 0 % (0-2) Band Neutrophils 0 % (0-8) Platelet Estimate Adequate Platelet Morphology Normal Red Blood Cell Morphology Normal Prothrombin Time 12.0 SEC (9.30-11.50) 12.0 SEC (9.30-11.50) Prothromb Time International Ratio 1.1 (0.9-1.1) 1.1 (0.9-1.1) Activated Partial Thromboplast Time 26 SEC (23-33) 30 SEC (23-33) Sodium Level 135 MMOL/L (136-145) 139 MMOL/L (136-145) 143 MMOL/L (136-145) Potassium Level 3.7 MMOL/L (3.5-5.1) 3.8 MMOL/L (3.5-5.1) 3.6 MMOL/L (3.5-5.1) Chloride Level 100 MMOL/L (98-107) 106 MMOL/L (98-107) 109 MMOL/L (98-107) Carbon Dioxide Level 24 MMOL/L (21-32) 24 MMOL/L (21-32) 26 MMOL/L (21-32) Anion Gap 11 mmol/L (5-15) 9 mmol/L (5-15) 8 mmol/L (5-15) Blood Urea Nitrogen 10 mg/dL (7-18) 10 mg/dL (7-18) 8 mg/dL (7-18) Creatinine 1.1 MG/DL (0.55-1.30) 1.0 MG/DL (0.55-1.30) 0.8 MG/DL (0.55-1.30) Estimat Glomerular Filtration Rate 48.7 mL/min (>60) 54.3 mL/min (>60) > 60 mL/min (>60) Glucose Level 138 MG/DL (74-106) 87 MG/DL (74-106) 94 MG/DL (74-106) Calcium Level 9.9 MG/DL (8.5-10.1) 9.1 MG/DL (8.5-10.1) 9.1 MG/DL (8.5-10.1) Total Bilirubin 1.4 MG/DL (0.2-1.0) 0.8 MG/DL (0.2-1.0) 1.3 MG/DL (0.2-1.0) Direct Bilirubin 0.5 MG/DL (0.0-0.3) 1.0 MG/DL (0.0-0.3) Aspartate Amino Transf (AST/SGOT) 335 U/L (15-37) 127 U/L (15-37) 178 U/L (15-37) Alanine Aminotransferase (ALT/SGPT) 452 U/L (12-78) 257 U/L (12-78) 230 U/L (12-78) Alkaline Phosphatase 321 U/L (46-116) 224 U/L (46-116) 257 U/L (46-116) Troponin I 0.000 ng/mL (0.000-0.056) Total Protein 7.4 G/DL (6.4-8.2) 6.3 G/DL (6.4-8.2) 6.0 G/DL (6.4-8.2) Albumin 3.9 G/DL (3.4-5.0) 3.1 G/DL (3.4-5.0) 2.8 G/DL (3.4-5.0) Globulin 3.5 g/dL 3.2 g/dL 3.2 g/dL Albumin/Globulin Ratio 1.1 (1.0-2.7) 1.0 (1.0-2.7) 0.9 (1.0-2.7) Lipase 79 U/L (73-393) Urine Color Yellow Urine Appearance Clear Urine pH 6.5 (4.5-8.0) Urine Specific [place] 1.005 (1.005-1.035) Urine Protein Negative (NEGATIVE) Urine Glucose (UA) Negative (NEGATIVE) Urine Ketones Negative (NEGATIVE) Urine Blood 2+ (NEGATIVE) Urine Nitrite Negative (NEGATIVE) Urine Bilirubin Negative (NEGATIVE) Urine Urobilinogen Normal MG/DL (0.0-1.0) Urine Leukocyte Esterase Negative (NEGATIVE) Urine RBC 0-2 /HPF (0 - 2) Urine WBC 0-2 /HPF (0 - 2) Urine Squamous Epithelial Cells Occasional /LPF Urine Bacteria Occasional /HPF (NONE) Hepatitis A IgM Antibody Negative (Negative) Hepatitis B Surface Antigen Negative (Negative) Hepatitis B Core IgM Antibody Negative (Negative) Hepatitis C Antibody <0.1 s/co ratio HIV (1&2) Antibody Rapid Negative (NEGATIVE) Test 07/23/20 05:30 Height (Feet): 5 Height (Inches): 3.00 Weight (Pounds): 160 Objective General appearance: alert, cooperative, no distress, appears stated age HEENT: nc, at Neck: supple, symmetrical, trachea midline, no adenopathy Lungs: clear to auscultation bilaterally Heart: regular rate and rhythm, S1, S2 normal, no murmur, click, rub or gallop Abdomen: soft, non-tender. ++ right flank tender Extremities: extremities normal, atraumatic, no cyanosis or edema Pulses: 2+ and symmetric Skin: Skin color, texture, turgor normal Neurologic: Grossly normal Kentrell Richard MD Jul 23, 2020 06:49
[2020-07-23 07:01] LABS: ALANINE AMINOTRANSFERASE 250 U/L (12-78); ALBUMIN 3.1 G/DL (3.4-5.0); ALBUMIN/GLOBULIN RATIO 0.9 (1.0-2.7); ALKALINE PHOSPHATASE 326 U/L (46-116); ANION GAP 7 mmol/L (5-15); ASPARTATE AMINO TRANSFERASE 136 U/L (15-37); BILIRUBIN,TOTAL 0.9 MG/DL (0.2-1.0); BLOOD UREA NITROGEN 7 mg/dL (7-18); CALCIUM 9.9 MG/DL (8.5-10.1); CARBON DIOXIDE 29 MMOL/L (21-32); CHLORIDE 108 MMOL/L (98-107); CREATININE 0.9 MG/DL (0.55-1.30); POTASSIUM 3.8 MMOL/L (3.5-5.1); SODIUM 144 MMOL/L (136-145)
[2020-07-23 07:05] LABS: BASOPHILS % (AUTO) 4.8 % (0.0-2.0); EOSINOPHILS % (AUTO) 3.8 % (0.0-3.0); HEMATOCRIT 39.5 % (37.0-47.0); HEMOGLOBIN 12.5 G/DL (12.0-16.0); LYMPHOCYTES % (AUTO) 13.1 % (20.0-45.0); MEAN CORPUSCULAR VOLUME 88 FL (80-99); MONOCYTES % (AUTO) 11.9 % (1.0-10.0); NEUTROPHILS % (AUTO) 66.4 % (45.0-75.0); PLATELET COUNT 148 K/UL (150-450); RED BLOOD COUNT 4.49 M/UL (4.20-5.40); RED CELL DISTRIBUTION WIDTH 12.1 % (11.6-14.8)
--- NOTE | 2020-07-23 07:15 | NUR ---
NURSE HAND-OFF: Important Events on Shift:[] Patient Status: [Stable] Diet: [Reg] Pending Orders: [] Pending Results/Labs:[] Pending MD notification:[] Latest Vital Signs: Temperature 97.9 , Pulse 64 , B/P 151 /78 , Respiratory Rate 19 , O2 SAT 97 , Room Air, O2 Flow Rate . Vital Sign Comment: [] Latest Dejesus Fall Score: 35 Fall Risk: Medium Risk Safety Measures: Call light Within Reach, Bed Alarm Zone 1, Side Rails Side Rails x2, Bed position Low and Locked. Fall Precautions: Patient Fall Education Report given to [REDD Meek].
--- NOTE | 2020-07-23 07:20 | NUR ---
NURSE NOTES: pt is sitting up in bed, alert and verbally responsive. oriented x 4, denies any pain and discomfort. IV fluids running, no infiltration noted. no acute distress noted at this time. place call light within reach.
--- NOTE | 2020-07-23 07:35 | Infectious Diseases Prog Note ---
Assessment/Plan 74yo F with: Afebrile Leukocytosis to 11, improved RUQ pain, c/f acute cholecystitis Elevated LFTs to 335 / 452, improving 2/2 BCx NTD UA neg COVID PCR neg CXR: No acute process CT A/P: Cholelithiasis. Distended gallbladder without gallbladder wall thickening. Extrahepatic and mild central intrahepatic biliary ductal dilatation, without evidence of downstream destructive lesion. Mild bilateral hydronephrosis and proximal hydroureter without evidence of downstream obstruction lesion. Significance/etiology uncertain. 2/4 Abd MRI: SMALL LAYERING GALLSTONE IN THE GALLBLADDER. NO DISTENTION OR SURROUNDING INFLAMMATION DEMONSTRATED. CBD SLIGHTLY PROMINENT BUT MAY BE AGE- RELATED. NO FILLING DEFECT OR DUCTAL STONE SEEN. Cr 1.0 HIV screen neg Acute hep panel neg PMH: Gallstones L sided breast CA s/p mastectomy 1 year ago Plan: Cont Zosyn #4 while in house Appreciate Gen Surg, GI input on possible acute cholecystitis and if intervention warranted at this time When cleared by other specialists, ok to d/c home on cipro/flagyl to complete 10 day course for acute cholecystitis w/ close PCP f/u Trend LFTs Monitor CBC/CMP Monitor temp curve, hemodynamics Monitor resp status D/w RN and pt's sister on the phone at length Thank you for this consult. [facility] will continue to follow. Subjective Allergies: Coded Allergies: No Known Allergies (Unverified , 01/02/19) AF NAD on RA WBC 5.0 No RUQ pain D/w pt's sister on the phone Objective Last 24 Hour Vital Signs Date Time Temp Pulse Resp B/P (MAP) Pulse Ox O2 Delivery O2 Flow Rate FiO2 07/23/20 04:00 97.9 64 19 151/78 (102) 97 07/23/20 00:00 97.7 64 20 141/98 (112) 97 07/22/20 21:00 Room Air 07/22/20 20:00 97.9 65 17 138/75 (96) 97 07/22/20 16:00 97.8 63 20 129/70 (89) 98 07/22/20 12:00 98.4 61 18 131/70 (90) 100 07/22/20 09:00 Room Air 07/22/20 08:00 98.0 74 18 122/65 (84) 96 Height (Feet): 5 Height (Inches): 3.00 Weight (Pounds): 160 Gen: NAD HEENT: NCAT Pulm: BL chest rise on RA Abd: Soft, NTND Ext: No c/c/e Skin: No visible rashes Neuro: Awake, interactive in [place]oc[place] Microbiology Date/Time Source Procedure Growth Status 07/20/20 17:15 Blood Blood Culture - Preliminary NO GROWTH AFTER 48 HOURS Resulted 07/20/20 17:00 Blood Blood Culture - Preliminary NO GROWTH AFTER 48 HOURS Resulted 07/20/20 16:10 Nasopharynx Coronavirus COVID-19 PCR ([facility]) - Final Complete Laboratory Tests Test 07/22/20 08:50 07/23/20 05:30 White Blood Count 3.9 K/UL (4.8-10.8) L 5.0 K/UL (4.8-10.8) Red Blood Count 4.12 M/UL (4.20-5.40) L 4.49 M/UL (4.20-5.40) Hemoglobin 11.8 G/DL (12.0-16.0) L 12.5 G/DL (12.0-16.0) Hematocrit 36.4 % (37.0-47.0) L 39.5 % (37.0-47.0) Mean Corpuscular Volume 88 FL (80-99) 88 FL (80-99) Mean Corpuscular Hemoglobin 28.6 PG (27.0-31.0) 27.8 PG (27.0-31.0) Mean Corpuscular Hemoglobin Concent 32.4 G/DL (32.0-36.0) 31.6 G/DL (32.0-36.0) L Red Cell Distribution Width 12.4 % (11.6-14.8) 12.1 % (11.6-14.8) Platelet Count 117 K/UL (150-450) L 148 K/UL (150-450) L Mean Platelet Volume 6.8 FL (6.5-10.1) 7.4 FL (6.5-10.1) Neutrophils (%) (Auto) 52.2 % (45.0-75.0) 66.4 % (45.0-75.0) Lymphocytes (%) (Auto) 29.8 % (20.0-45.0) 13.1 % (20.0-45.0) L Monocytes (%) (Auto) 13.6 % (1.0-10.0) H 11.9 % (1.0-10.0) H Eosinophils (%) (Auto) 3.6 % (0.0-3.0) H 3.8 % (0.0-3.0) H Basophils (%) (Auto) 0.9 % (0.0-2.0) 4.8 % (0.0-2.0) H Sodium Level 143 MMOL/L (136-145) 144 MMOL/L (136-145) Potassium Level 3.6 MMOL/L (3.5-5.1) 3.8 MMOL/L (3.5-5.1) Chloride Level 109 MMOL/L (98-107) H 108 MMOL/L (98-107) H Carbon Dioxide Level 26 MMOL/L (21-32) 29 MMOL/L (21-32) Anion Gap 8 mmol/L (5-15) 7 mmol/L (5-15) Blood Urea Nitrogen 8 mg/dL (7-18) 7 mg/dL (7-18) Creatinine 0.8 MG/DL (0.55-1.30) 0.9 MG/DL (0.55-1.30) Estimat Glomerular Filtration Rate > 60 mL/min (>60) > 60 mL/min (>60) Glucose Level 94 MG/DL (74-106) 87 MG/DL (74-106) Calcium Level 9.1 MG/DL (8.5-10.1) 9.9 MG/DL (8.5-10.1) Total Bilirubin 1.3 MG/DL (0.2-1.0) H 0.9 MG/DL (0.2-1.0) Direct Bilirubin 1.0 MG/DL (0.0-0.3) H Aspartate Amino Transf (AST/SGOT) 178 U/L (15-37) H 136 U/L (15-37) H Alanine Aminotransferase (ALT/SGPT) 230 U/L (12-78) H 250 U/L (12-78) H Alkaline Phosphatase 257 U/L (46-116) H 326 U/L (46-116) H Total Protein 6.0 G/DL (6.4-8.2) L 6.6 G/DL (6.4-8.2) Albumin 2.8 G/DL (3.4-5.0) L 3.1 G/DL (3.4-5.0) L Globulin 3.2 g/dL 3.5 g/dL Albumin/Globulin Ratio 0.9 (1.0-2.7) L 0.9 (1.0-2.7) L Amylase Level Pending Lipase Pending Current Medications Medications (Trade) Dose Ordered Sig/Perez Route PRN Reason Start Time Stop Time Status Last Admin Dose Admin Acetaminophen (Tylenol) 650 mg Q4H PRN ORAL Temp >100.5 07/20/20 15:00 08/19/20 14:59 07/20/20 15:32 Al Hydroxide/Mg Hydroxide (Mylanta II) 30 ml Q6H PRN ORAL dyspepsia 07/20/20 15:00 08/19/20 14:59 Bisacodyl (Dulcolax) 10 mg HSPRN PRN RECTAL Constipation 07/20/20 15:00 10/18/20 14:59 Dextrose (Dextrose 50%) 25 ml Q30M PRN IV Hypoglycemia 07/20/20 15:00 10/18/20 14:59 Dextrose (Dextrose 50%) 50 ml Q30M PRN IV Hypoglycemia 07/20/20 15:00 10/18/20 14:59 Diphenhydramine HCl (Benadryl) 25 mg Q6H PRN ORAL Itching/Pruritis 07/20/20 15:00 08/19/20 14:59 Docusate Sodium (Colace) 100 mg EVERY 12 HOURS ORAL 07/20/20 21:00 08/19/20 20:59 07/22/20 22:20 Magnesium Hydroxide (Mom) 30 ml HSPRN PRN ORAL Constipation 07/20/20 15:00 08/19/20 14:59 Morphine Sulfate (Morphine Sulfate) 2 mg Q4H PRN IVP Moderate Pain (Pain Scale 4-6) 07/20/20 15:00 07/27/20 14:59 07/23/20 06:05 Ondansetron HCl (Zofran) 4 mg Q6H PRN IVP Nausea & Vomiting 07/20/20 15:00 08/19/20 14:59 Pantoprazole (Protonix) 40 mg DAILY IV 07/21/20 09:00 08/20/20 08:59 07/22/20 08:23 Piperacillin Sod/ Tazobactam Sod 3.375 gm/Sodium Chloride 110 ml @ 27.5 mls/hr EVERY 8 HOURS IVPB 07/20/20 16:00 07/25/20 15:59 07/23/20 06:05 Sodium Chloride 1,000 ml @ 75 mls/hr [id number] IVLG 07/20/20 16:00 08/19/20 15:59 07/22/20 22:20 Temazepam (Restoril) 15 mg HSPRN PRN ORAL Insomnia 07/20/20 21:00 07/27/20 20:59 07/22/20 00:29 Jessie Tao M.D. Jul 23, 2020 07:35
[2020-07-23 08:00] VITALS: BP 152/64
[2020-07-23 08:06] LABS: AMYLASE 27 U/L (25-115)
[2020-07-23] MEDS: Pantoprazole Inj IV SCH (08:24)
[2020-07-23] MEDS: Docusate 100mg cap ORAL SCH ×2 (08:24→21:16)
--- NOTE | 2020-07-23 09:31 | General Progress Note ---
Subjective Constitutional: Reports: weakness Allergies: Coded Allergies: No Known Allergies (Unverified , 01/02/19) All Systems: reviewed and negative except above Subjective calm in bed Objective Last 24 Hour Vital Signs Date Time Temp Pulse Resp B/P (MAP) Pulse Ox O2 Delivery O2 Flow Rate FiO2 07/23/20 04:00 97.9 64 19 151/78 (102) 97 07/23/20 00:00 97.7 64 20 141/98 (112) 97 07/22/20 21:00 Room Air 07/22/20 20:00 97.9 65 17 138/75 (96) 97 07/22/20 16:00 97.8 63 20 129/70 (89) 98 07/22/20 12:00 98.4 61 18 131/70 (90) 100 Intake and Output 07/22/20 07/23/20 19:00 07:00 Intake Total 915 ml 335.0 ml Balance 915 ml 335.0 ml Intake Oral 840 ml IV Total 75 ml 335.0 ml # Voids 6 3 Laboratory Tests 07/23/20 05:30: White Blood Count 5.0, Red Blood Count 4.49, Hemoglobin 12.5, Hematocrit 39.5, Mean Corpuscular Volume 88, Mean Corpuscular Hemoglobin 27.8, Mean Corpuscular Hemoglobin Concent 31.6L, Red Cell Distribution Width 12.1, Platelet Count 148L, Mean Platelet Volume 7.4, Neutrophils (%) (Auto) 66.4, Lymphocytes (%) (Auto) 13.1L, Monocytes (%) (Auto) 11.9H, Eosinophils (%) (Auto) 3.8H, Basophils (%) (Auto) 4.8H, Sodium Level 144, Potassium Level 3.8, Chloride Level 108H, Carbon Dioxide Level 29, Anion Gap 7, Blood Urea Nitrogen 7, Creatinine 0.9, Estimat Glomerular Filtration Rate > 60, Glucose Level 87, Calcium Level 9.9, Total Bilirubin 0.9, Aspartate Amino Transf (AST/SGOT) 136H, Alanine Aminotransferase (ALT/SGPT) 250H, Alkaline Phosphatase 326H, Total Protein 6.6, Albumin 3.1L, Globulin 3.5, Albumin/Globulin Ratio 0.9L, Amylase Level 27, Lipase 116 Height (Feet): 5 Height (Inches): 3.00 Weight (Pounds): 160 General Appearance: lethargic EENT: normal ENT inspection Neck: normal alignment Cardiovascular: normal peripheral pulses, normal rate, regular rhythm Respiratory/Chest: chest wall non-tender, lungs clear, normal breath sounds Abdomen: normal bowel sounds, non tender, soft Extremities: normal inspection Edema: no edema noted Arm (L), no edema noted Arm (R), no edema noted Leg (L), no edema noted Leg (R), no edema noted Pedal (L), no edema noted Pedal (R), no edema noted Generalized Neurologic: motor weakness Skin: normal pigmentation, warm/dry Assessment/Plan Problem List: (1) Gallstone ICD Codes: K80.20 - Calculus of gallbladder without cholecystitis without obstruction SNOMED: 829812397 (2) Abdominal pain ICD Codes: R10.9 - Unspecified abdominal pain SNOMED: 74238188 (3) Breast cancer ICD Codes: C50.919 - Malignant neoplasm of unspecified site of unspecified female breast SNOMED: 751167593 (4) Herpes zoster ICD Codes: B02.9 - Zoster without complications SNOMED: 1446954 (5) Elevated liver function tests ICD Codes: R79.89 - Other specified abnormal findings of blood chemistry SNOMED: 241402691, 797095775 (6) Cholecystitis ICD Codes: K81.9 - Cholecystitis, unspecified SNOMED: 32319130 (7) Acute pancreatitis ICD Codes: K85.90 - Acute pancreatitis without necrosis or infection, unspecified SNOMED: 514955649, 492908460 Status: unchanged Assessment/Plan: gi sx f/u pain control cbc bmp Jameson Barrera DO Jul 23, 2020 09:31
--- NOTE | 2020-07-23 10:00 | NUR ---
NURSE NOTES: Dr. Tao (ID) made rounds, notified MD about pt's negative covid-19 result. MD ordered to take pt off isolation. order noted and communicated.
--- NOTE | 2020-07-23 11:18 | NUR ---
CASE MANAGEMENT:REVIEW 07/23/20 SI: ACUTE PANCREATITIS. HERPES ZOSTER. CHOLECYSTITIS 96.8 86 18 152/64 99% ON RA PLT-148 AST/ALT+136/250 IS: IV ZOSYN Q8HRS IVF@75/HR IV PROTONIX QD IV MORPHINE Q4HRS PRN : MED/SURG STATUS DCP: FROM HOME PLAN: REGULAR DIET NOVEL COVID NOT DETECTED
[2020-07-23 12:00] VITALS: BP 135/70
[2020-07-23] MEDS ORDERED: BACITRAYCIN PLU28 GM TP (13:49)
[2020-07-23] MEDS ORDERED: VITAMIN D325 MC1 PO (13:49)
[2020-07-23] MEDS ORDERED: LOSARTAN POTASS50 MG ORAL (13:49)
[2020-07-23] MEDS ORDERED: OMEPRAZOLE20 M3 ORAL (13:49)
[2020-07-23] MEDS ORDERED: AMLODIPINE BES2.5 MG ORAL (13:49)
[2020-07-23] MEDS ORDERED: ARIMIDEX1 MG ORAL (13:49)
[2020-07-23] MEDS ORDERED: KLONOPIN0.5 MG ORAL (13:49)
[2020-07-23] MEDS ORDERED: FAMOTIDINE20 MG ORAL (13:49)
--- NOTE | 2020-07-23 13:49 | General Progress Note ---
Subjective ROS Limited/Unobtainable: Yes Allergies: Coded Allergies: No Known Allergies (Unverified , 01/02/19) Objective Last 24 Hour Vital Signs Date Time Temp Pulse Resp B/P (MAP) Pulse Ox O2 Delivery O2 Flow Rate FiO2 07/23/20 09:00 Room Air 07/23/20 08:00 96.8 86 18 152/64 (93) 99 07/23/20 04:00 97.9 64 19 151/78 (102) 97 07/23/20 00:00 97.7 64 20 141/98 (112) 97 07/22/20 21:00 Room Air 07/22/20 20:00 97.9 65 17 138/75 (96) 97 07/22/20 16:00 97.8 63 20 129/70 (89) 98 Intake and Output 07/22/20 07/23/20 19:00 07:00 Intake Total 915 ml 335.0 ml Balance 915 ml 335.0 ml Intake Oral 840 ml IV Total 75 ml 335.0 ml # Voids 6 3 Laboratory Tests 07/23/20 05:30: White Blood Count 5.0, Red Blood Count 4.49, Hemoglobin 12.5, Hematocrit 39.5, Mean Corpuscular Volume 88, Mean Corpuscular Hemoglobin 27.8, Mean Corpuscular Hemoglobin Concent 31.6L, Red Cell Distribution Width 12.1, Platelet Count 148L, Mean Platelet Volume 7.4, Neutrophils (%) (Auto) 66.4, Lymphocytes (%) (Auto) 13.1L, Monocytes (%) (Auto) 11.9H, Eosinophils (%) (Auto) 3.8H, Basophils (%) (Auto) 4.8H, Sodium Level 144, Potassium Level 3.8, Chloride Level 108H, Carbon Dioxide Level 29, Anion Gap 7, Blood Urea Nitrogen 7, Creatinine 0.9, Estimat Glomerular Filtration Rate > 60, Glucose Level 87, Calcium Level 9.9, Total Bilirubin 0.9, Aspartate Amino Transf (AST/SGOT) 136H, Alanine Aminotransferase (ALT/SGPT) 250H, Alkaline Phosphatase 326H, Total Protein 6.6, Albumin 3.1L, Globulin 3.5, Albumin/Globulin Ratio 0.9L, Amylase Level 27, Lipase 116 Height (Feet): 5 Height (Inches): 3.00 Weight (Pounds): 160 General Appearance: no apparent distress EENT: normal ENT inspection Neck: supple Cardiovascular: normal rate Respiratory/Chest: decreased breath sounds Abdomen: normal bowel sounds, non tender, soft Extremities: non-tender Assessment/Plan Problem List: (1) Herpes zoster ICD Codes: B02.9 - Zoster without complications SNOMED: 4702449 (2) Elevated liver function tests ICD Codes: R79.89 - Other specified abnormal findings of blood chemistry SNOMED: 888703961, 265542061 (3) Cholecystitis ICD Codes: K81.9 - Cholecystitis, unspecified SNOMED: 13859077 (4) Acute pancreatitis ICD Codes: K85.90 - Acute pancreatitis without necrosis or infection, unspecified SNOMED: 717899773, 387724664 (5) Gallstone ICD Codes: K80.20 - Calculus of gallbladder without cholecystitis without obs truction SNOMED: 600297709 (6) Breast cancer ICD Codes: C50.919 - Malignant neoplasm of unspecified site of unspecified female breast SNOMED: 375988113 (7) Abdominal pain ICD Codes: R10.9 - Unspecified abdominal pain SNOMED: 92785562 Status: unchanged Assessment/Plan: abx MRCP>>>reviewed repeat labs normal amyalse and lipase now on reg diet fi surg recs Trenton Teresa MD Jul 23, 2020 13:49
[2020-07-23 16:00] VITALS: BP 131/69
--- NOTE | 2020-07-23 18:36 | NUR ---
NURSE HAND-OFF: Important Events on Shift:n/a Patient Status: stable Diet: regular Pending Orders: n/a Pending Results/Labs:n/a Pending MD notification:n/a Latest Vital Signs: Temperature 98.2 , Pulse 68 , B/P 131 /69 , Respiratory Rate 20 , O2 SAT 96 , Room Air, O2 Flow Rate . Vital Sign Comment: stable Latest Dejesus Fall Score: 35 Fall Risk: Medium Risk Safety Measures: Call light Within Reach, Bed Alarm Zone 1, Side Rails Side Rails x2, Bed position Low and Locked. Fall Precautions: Patient Fall Education Report given to . Addendum: 07/23/20 at 1921 by Fantasma Salomon RN NURSE HAND-OFF: Important Events on Shift:[] Patient Status: [] Diet: [] Pending Orders: [] Pending Results/Labs:[] Pending MD notification:[] Latest Vital Signs: Temperature 98.2 , Pulse 68 , B/P 131 /69 , Respiratory Rate 20 , O2 SAT 96 , Room Air, O2 Flow Rate . Vital Sign Comment: [] Latest Dejesus Fall Score: 35 Fall Risk: Medium Risk Safety Measures: Call light Within Reach, Bed Alarm Zone 1, Side Rails Side Rails x2, Bed position Low and Locked. Fall Precautions: Patient Fall Education Report given to
--- NOTE | 2020-07-23 19:45 | NUR ---
NURSE NOTES: Pt is in bed, awake and alert. No acute distress noted. Pt speaks only Tristanian. Communicated to pt via pt's friend. Dr. Posadas was called to find out regarding the patient's care plan and pt was updated. Pt is on Zosyn. Fall precautions in place. Pt will be monitored.
[2020-07-23 20:00] VITALS: BP 151/69
[2020-07-24] VITALS: BP 145/76
[2020-07-24 04:00] VITALS: BP 153/77
--- NOTE | 2020-07-24 06:15 | NUR ---
NURSE NOTES: Pt is anxious to go home., otherwise okay.
[2020-07-24] MEDS: Piperacillin/Tazobactam 3.375 GM in NS 110 ML IVPB SCH (06:28)
--- NOTE | 2020-07-24 07:30 | NUR ---
NURSE HAND-OFF: Important Events on Shift:[Anxious to go home] Patient Status: [Stable] Diet: [Regular] Pending Orders: [] Pending Results/Labs:[] Pending MD notification:[] Latest Vital Signs: Temperature 97.7 , Pulse 65 , B/P 153 /77 , Respiratory Rate 18 , O2 SAT 97 , Room Air, O2 Flow Rate . Vital Sign Comment: [] Latest Dejesus Fall Score: 35 Fall Risk: Medium Risk Safety Measures: Call light Within Reach, Bed Alarm Zone 1, Side Rails Side Rails x2, Bed position Low and Locked. Fall Precautions: Patient Fall Education Report given to [ Bossman Mays RN].
--- NOTE | 2020-07-24 07:35 | NUR ---
NURSE NOTES: Patient sitting in bed awake. Complain of pain 5/10 and will administer pain medication as ordered. IV dressing intact and dry. Bed lowest position and side rails up. Call light within reach. Will continue to monitor.
--- NOTE | 2020-07-24 07:43 | NUR ---
RD ASSESSMENT & RECOMMENDATIONS SEE CARE ACTIVITY FOR COMPLETE ASSESSMENT DAILY ESTIMATED NEEDS: Needs based on cholecysitis/ 57kg abw 25-30 kcals/kg 7897-7691 total kcals 1-1.5 g protein/kg 57-68 g total protein 25-30 mL/kg 1240-0208 total fluid mLs NUTRITION DIAGNOSIS: Altered nutrition related lab values R/T cholecysitis as evidenced by elev LFTs, elev T bili upon adm-> now wnl. CURRENT DIET:CLEAR LIQUID DIET -> REGULAR PO DIET RECOMMENDATIONS: LOW NA, LOW FAT ADDITIONAL RECOMMENDATIONS: * Standing wt for accurate CBW * Trend LFTs- remain elevated * Monitor PO tolerance and acceptance
[2020-07-24 08:00] VITALS: BP 150/75
[2020-07-24 08:57] LABS: BASOPHILS % (AUTO) 0.8 % (0.0-2.0); HEMATOCRIT 40.6 % (37.0-47.0); LYMPHOCYTES % (AUTO) 19.2 % (20.0-45.0); MEAN CORPUSCULAR VOLUME 89 FL (80-99); MONOCYTES % (AUTO) 5.6 % (1.0-10.0); NEUTROPHILS % (AUTO) 70.3 % (45.0-75.0); PLATELET COUNT 161 K/UL (150-450); RED BLOOD COUNT 4.55 M/UL (4.20-5.40); RED CELL DISTRIBUTION WIDTH 12.5 % (11.6-14.8); WHITE BLOOD COUNT 4.7 K/UL (4.8-10.8)
--- NOTE | 2020-07-24 08:57 | General Progress Note ---
Subjective ROS Limited/Unobtainable: Yes Allergies: Coded Allergies: No Known Allergies (Unverified , 01/02/19) Objective Last 24 Hour Vital Signs Date Time Temp Pulse Resp B/P (MAP) Pulse Ox O2 Delivery O2 Flow Rate FiO2 07/24/20 08:00 97.5 78 19 150/75 (100) 97 07/24/20 04:00 97.7 65 18 153/77 (102) 97 07/24/20 00:00 97.9 69 20 145/76 (99) 95 07/23/20 21:00 Room Air 07/23/20 20:00 97.7 65 19 151/69 (96) 98 07/23/20 16:00 98.2 68 20 131/69 (89) 96 07/23/20 12:00 97.5 96 18 135/70 (91) 99 07/23/20 09:00 Room Air Intake and Output 07/23/20 07/24/20 19:00 07:00 Intake Total 527.5 ml 200 ml Balance 527.5 ml 200 ml Intake Oral 500 ml IV Total 27.5 ml Other 200 ml # Voids 3 Laboratory Tests 07/24/20 07:50: White Blood Count [Pending], Red Blood Count [Pending], Hemoglobin [Pending], Hematocrit [Pending], Mean Corpuscular Volume [Pending], Mean Corpuscular Hemoglobin [Pending], Mean Corpuscular Hemoglobin Concent [Pending], Red Cell Distribution Width [Pending], Platelet Count [Pending], Mean Platelet Volume [Pending], Neutrophils (%) (Auto) [Pending], Lymphocytes (%) (Auto) [Pending], Monocytes (%) (Auto) [Pending], Eosinophils (%) (Auto) [Pending], Basophils (%) (Auto) [Pending], Sodium Level [Pending], Potassium Level [Pending], Chloride Level [Pending], Carbon Dioxide Level [Pending], Blood Urea Nitrogen [Pending], Creatinine [Pending], Estimat Glomerular Filtration Rate [Pending], Glucose Level [Pending], Calcium Level [Pending], Total Bilirubin [Pending], Aspartate Amino Transf (AST/SGOT) [Pending], Alanine Aminotransferase (ALT/SGPT) [Pending ], Alkaline Phosphatase [Pending], Total Protein [Pending], Albumin [Pending], Globulin [Pending] Height (Feet): 5 Height (Inches): 3.00 Weight (Pounds): 160 General Appearance: no apparent distress EENT: normal ENT inspection Neck: supple Cardiovascular: normal rate Respiratory/Chest: decreased breath sounds Abdomen: normal bowel sounds, non tender, soft Extremities: non-tender Assessment/Plan Problem List: (1) Herpes zoster ICD Codes: B02.9 - Zoster without complications SNOMED: 3925346 (2) Elevated liver function tests ICD Codes: R79.89 - Other specified abnormal findings of blood chemistry SNOMED: 635908441, 613213990 (3) Cholecystitis ICD Codes: K81.9 - Cholecystitis, unspecified SNOMED: 33910948 (4) Acute pancreatitis ICD Codes: K85.90 - Acute pancreatitis without necrosis or infection, unspecified SNOMED: 563221295, 032097281 (5) Gallstone ICD Codes: K80.20 - Calculus of gallbladder without cholecystitis without obstruction SNOMED: 921014625 (6) Breast cancer ICD Codes: C50.919 - Malignant neoplasm of unspecified site of unspecified female breast SNOMED: 033386778 (7) Abdominal pain ICD Codes: R10.9 - Unspecified abdominal pain SNOMED: 75508156 Status: unchanged Assessment/Plan: abx MRCP>>>reviewed repeat labs normal amyalse and lipase now on reg diet fi surg recs Trenton Teresa MD Jul 24, 2020 08:57
[2020-07-24] MEDS: Docusate 100mg cap ORAL SCH (09:00)
--- NOTE | 2020-07-24 09:00 | NUR ---
NURSE NOTES: Spoke to regarding patient and Patient cleared to discharge GI standpoint. Order noted and carried out.
[2020-07-24] MEDS: Pantoprazole Inj IV SCH (09:17)
[2020-07-24 09:29] LABS: ALANINE AMINOTRANSFERASE 188 U/L (12-78); ALBUMIN 3.2 G/DL (3.4-5.0); ALBUMIN/GLOBULIN RATIO 0.9 (1.0-2.7); ALKALINE PHOSPHATASE 306 U/L (46-116); ANION GAP 8 mmol/L (5-15); ASPARTATE AMINO TRANSFERASE 75 U/L (15-37); BLOOD UREA NITROGEN 8 mg/dL (7-18); CARBON DIOXIDE 26 MMOL/L (21-32); CHLORIDE 107 MMOL/L (98-107); CREATININE 0.8 MG/DL (0.55-1.30); POTASSIUM 3.5 MMOL/L (3.5-5.1); SODIUM 141 MMOL/L (136-145)
--- NOTE | 2020-07-24 09:36 | General Progress Note ---
Subjective Constitutional: Reports: weakness Allergies: Coded Allergies: No Known Allergies (Unverified , 01/02/19) All Systems: reviewed and negative except above Subjective calm in bed eating ok Objective Last 24 Hour Vital Signs Date Time Temp Pulse Resp B/P (MAP) Pulse Ox O2 Delivery O2 Flow Rate FiO2 07/24/20 08:00 97.5 78 19 150/75 (100) 97 07/24/20 04:00 97.7 65 18 153/77 (102) 97 07/24/20 00:00 97.9 69 20 145/76 (99) 95 07/23/20 21:00 Room Air 07/23/20 20:00 97.7 65 19 151/69 (96) 98 07/23/20 16:00 98.2 68 20 131/69 (89) 96 07/23/20 12:00 97.5 96 18 135/70 (91) 99 Intake and Output 07/23/20 07/24/20 19:00 07:00 Intake Total 527.5 ml 200 ml Balance 527.5 ml 200 ml Intake Oral 500 ml IV Total 27.5 ml Other 200 ml # Voids 3 Laboratory Tests 07/24/20 07:50: White Blood Count 4.7L, Red Blood Count 4.55, Hemoglobin 13.0, Hematocrit 40.6, Mean Corpuscular Volume 89, Mean Corpuscular Hemoglobin 28.6, Mean Corpuscular Hemoglobin Concent 32.1, Red Cell Distribution Width 12.5, Platelet Count 161, Mean Platelet Volume 7.1, Neutrophils (%) (Auto) 70.3, Lymphocytes (%) (Auto) 19.2L, Monocytes (%) (Auto) 5.6, Eosinophils (%) (Auto) 4.0H, Basophils (%) (Auto) 0.8, Sodium Level 141, Potassium Level 3.5, Chloride Level 107, Carbon Dioxide Level 26, Anion Gap 8, Blood Urea Nitrogen 8, Creatinine 0.8, Estimat Glomerular Filtration Rate > 60, Glucose Level 131H, Calcium Level 10.0, Total Bilirubin 1.0, Aspartate Amino Transf (AST/SGOT) 75H, Alanine Aminotransferase (ALT/SGPT) 188H, Alkaline Phosphatase 306H, Total Protein 6.8, Albumin 3.2L, Globulin 3.6, Albumin/Globulin Ratio 0.9L Height (Feet): 5 Height (Inches): 3.00 Weight (Pounds): 160 General Appearance: lethargic EENT: normal ENT inspection Neck: normal alignment Cardiovascular: normal peripheral pulses, normal rate, regular rhythm Respiratory/Chest: chest wall non-tender, lungs clear, normal breath sounds Abdomen: normal bowel sounds, non tender, soft Extremities: normal inspection Edema: no edema noted Arm (L), no edema noted Arm (R), no edema noted Leg (L), no edema noted Leg (R), no edema noted Pedal (L), no edema noted Pedal (R), no edema noted Generalized Neurologic: motor weakness Skin: normal pigmentation, warm/dry Assessment/Plan Problem List: (1) Gallstone ICD Codes: K80.20 - Calculus of gallbladder without cholecystitis without obstruction SNOMED: 253506666 (2) Abdominal pain ICD Codes: R10.9 - Unspecified abdominal pain SNOMED: 43580280 (3) Breast cancer ICD Codes: C50.919 - Malignant neoplasm of unspecified site of unspecified female breast SNOMED: 624738577 (4) Herpes zoster ICD Codes: B02.9 - Zoster without complications SNOMED: 8060084 (5) Elevated liver function tests ICD Codes: R79.89 - Other specified abnormal findings of blood chemistry SNOMED: 871284125, 582590595 (6) Cholecystitis ICD Codes: K81.9 - Cholecystitis, unspecified SNOMED: 16255966 (7) Acute pancreatitis ICD Codes: K85.90 - Acute pancreatitis without necrosis or infection, unspecified SNOMED: 695075947, 512706425 Status: stable, progressing Assessment/Plan: gi sx f/u pain control cbc bmp Jameson Barrera DO Jul 24, 2020 09:36
[2020-07-24 12:00] VITALS: BP 162/75
[2020-07-24] MEDS ORDERED: Piperacillin/Tazobactam 3.375 GM in NS 110 ML IVPB SCH (14:00)
--- NOTE | 2020-07-24 14:24 | NUR ---
NURSE NOTES: Seen and evaluated by and Patient cleared to discharge surgical standpoint. Order noted and carried out. No antibiotic need
[2020-07-24] MEDS ORDERED: Losartan 50mg tab ORAL SCH (15:00)
--- NOTE | 2020-07-24 15:26 | Surgery Progress Note ---
Surgery Progress Note Subjective Symptoms: improved, pain absent, tolerating diet, voiding well, passing flatus, BM Objective Last 24 Hour Vital Signs Date Time Temp Pulse Resp B/P (MAP) Pulse Ox O2 Delivery O2 Flow Rate FiO2 07/24/20 15:11 162/75 07/24/20 15:11 65 162/75 07/24/20 12:00 97.9 65 18 162/75 (104) 95 07/24/20 09:00 Room Air 07/24/20 08:00 97.5 78 19 150/75 (100) 97 07/24/20 04:00 97.7 65 18 153/77 (102) 97 07/24/20 00:00 97.9 69 20 145/76 (99) 95 07/23/20 21:00 Room Air 07/23/20 20:00 97.7 65 19 151/69 (96) 98 07/23/20 16:00 98.2 68 20 131/69 (89) 96 I&O Intake and Output 07/23/20 07/24/20 19:00 07:00 Intake Total 527.5 ml 200 ml Balance 527.5 ml 200 ml Intake Oral 500 ml IV Total 27.5 ml Other 200 ml # Voids 3 Cardiovascular: RSR Respiratory: clear Abdomen: soft, flat, non-tender, present bowel sounds, non-distended Extremities: no edema, no tenderness, no cyanosis Laboratory Tests Test 07/24/20 07:50 White Blood Count 4.7 K/UL (4.8-10.8) L Red Blood Count 4.55 M/UL (4.20-5.40) Hemoglobin 13.0 G/DL (12.0-16.0) Hematocrit 40.6 % (37.0-47.0) Mean Corpuscular Volume 89 FL (80-99) Mean Corpuscular Hemoglobin 28.6 PG (27.0-31.0) Mean Corpuscular Hemoglobin Concent 32.1 G/DL (32.0-36.0) Red Cell Distribution Width 12.5 % (11.6-14.8) Platelet Count 161 K/UL (150-450) Mean Platelet Volume 7.1 FL (6.5-10.1) Neutrophils (%) (Auto) 70.3 % (45.0-75.0) Lymphocytes (%) (Auto) 19.2 % (20.0-45.0) L Monocytes (%) (Auto) 5.6 % (1.0-10.0) Eosinophils (%) (Auto) 4.0 % (0.0-3.0) H Basophils (%) (Auto) 0.8 % (0.0-2.0) Sodium Level 141 MMOL/L (136-145) Potassium Level 3.5 MMOL/L (3.5-5.1) Chloride Level 107 MMOL/L (98-107) Carbon Dioxide Level 26 MMOL/L (21-32) Anion Gap 8 mmol/L (5-15) Blood Urea Nitrogen 8 mg/dL (7-18) Creatinine 0.8 MG/DL (0.55-1.30) Estimat Glomerular Filtration Rate > 60 mL/min (>60) Glucose Level 131 MG/DL (74-106) H Calcium Level 10.0 MG/DL (8.5-10.1) Total Bilirubin 1.0 MG/DL (0.2-1.0) Aspartate Amino Transf (AST/SGOT) 75 U/L (15-37) H Alanine Aminotransferase (ALT/SGPT) 188 U/L (12-78) H Alkaline Phosphatase 306 U/L (46-116) H Total Protein 6.8 G/DL (6.4-8.2) Albumin 3.2 G/DL (3.4-5.0) L Globulin 3.6 g/dL Albumin/Globulin Ratio 0.9 (1.0-2.7) L Plan Problems: (1) Herpes zoster (2) Acute pancreatitis (3) Elevated liver function tests Assessment & Plan: 74-year-old female presenting with right upper quadrant abdominal pain flank pain pain. No nausea vomit fever chills at this time. Labs noted elevated LFTs. Lipase normal. Ultrasound noted. CT pending. On examination flank pain mild nominal discomfort. Need further imaging to continue to assess patient. No acute surgical invention urgently from the emergency department. Labs ordered imaging ordered differential potential renal versus biliary versus hepatic. Will follow with examination and recommendations. Thank you let me participation's care. N.p.o. IV fluids pain improved no n/v comfortable CT noted okay for diet no acute surgical intervention planned outpatient f/u for elective cholecystectomy thank you A gallstone is seen within the gallbladder. The gallbladder is distended but the wall does not appear to be thickened. The common bile duct is mildly dilated, measuring up to 10 mm diameter. No downstream obstructive lesion demonstrated, however. There is mild intrahepatic biliary ductal dilatation. The liver, pancreas, spleen, adrenals are unremarkable. The kidneys demonstrate mild bilateral hydronephrosis and proximal hydroureter, but the ureters gradually taper to normal caliber and no destructive lesion is demonstrated. The right kidney demonstrates a subcentimeter low-attenuation lesion which is too small to characterize. No pelvic mass or adenopathy. Uterus and adnexal structures appear unremarkable. Lack of enteric contrast limits assessment of the GI tract. The appendix is normal. There is colonic diverticulosis. No evidence of acute diverticulitis. No small bowel distention. No free or loculated intraperitoneal gas or fluid is evident. The distal esophagus, stomach, duodenum are unremarkable. The included lung bases demonstrate posterior dependent atelectatic changes. The bones demonstrate degenerative spondylosis changes. Impression: Cholelithiasis. Distended gallbladder without gallbladder wall thickening Extrahepatic and mild central intrahepatic biliary ductal dilatation, without evidence of downstream destructive lesion. Possibly age related. Correlate with liver function tests, consider MRCP for further evaluation if clinically indicated Mild bilateral hydronephrosis and proximal hydroureter without evidence of downstream obstruction lesion. Significance/etiology uncertain. Colonic diverticulosis. No evidence of diverticulitis Findings noted, including degenerative spondylosis, basilar pulmonary parenchymal dependent atelectasis, probable small subcentimeter right renal cyst (4) Cholecystitis Assessment & Plan: 74-year-old female with cholecystitis now resolved. Afebrile hemodynamic stable labs improved comfortable no pain abdominal exam benign. Stat history of cholecystitis in the past. Multiple episodes is considered surgery before. Long session with patient the bedside using educational interpreter. Patient expressed understanding of her current case and states that she will follow-up with her primary care physician for discussion of consideration of elective cholecystectomy in the future. For now pain is resolved no nausea vomiting tolerating diet labs are significantly improved. MRI noted. Okay to discharge with follow-up with her primary care physician and considerations of elective cholecystectomy. Thank you for let me participate patient's care The liver and spleen appear homogeneous. Gallbladder is nondistended. Small layering stone noted near the neck. There is no intrahepatic ductal dilatation. CBD measures 8 mm with no filling defect demonstrated. The pancreas is unremarkable. Adrenals are normal. There are bilateral extrarenal pelvis and small parapelvic cysts noted. There is no signs of bowel distention. No ascites demonstrated. There is no adenopathy noted. Visualized portions of the lumbar spine appear unremarkable. IMPRESSION: SMALL LAYERING GALLSTONE IN THE GALLBLADDER. NO DISTENTION OR SURROUNDING INFLAMMATION DEMONSTRATED. CBD SLIGHTLY PROMINENT BUT MAY BE AGE-RELATED. NO FILLING DEFECT OR DUCTAL STONE SEEN. Almas Posadas Jul 24, 2020 15:26
[2020-07-24 16:00] VITALS: BP 120/73
--- NOTE | 2020-07-24 17:17 | NUR ---
NURSE NOTES: Patient discharged with a friend in stable condition. Discharge instruction given and translated to Eritrean by charge nurse and patient verbalized understanding. Belonging given to patient. IV and ID removed. Instructed to follow up with MD and verbalized understanding. Patient ambulated out with all personal belongings with steady gait.
--- NOTE | 2020-07-24 17:56 | Cardiac Electrophysiology PN ---
Subjective Subjective [id number] Objective Last 24 Hour Vital Signs Date Time Temp Pulse Resp B/P (MAP) Pulse Ox O2 Delivery O2 Flow Rate FiO2 07/24/20 16:00 97.6 74 18 120/73 (89) 96 07/24/20 15:11 162/75 07/24/20 15:11 65 162/75 07/24/20 12:00 97.9 65 18 162/75 (104) 95 07/24/20 09:00 Room Air 07/24/20 08:00 97.5 78 19 150/75 (100) 97 07/24/20 04:00 97.7 65 18 153/77 (102) 97 07/24/20 00:00 97.9 69 20 145/76 (99) 95 07/23/20 21:00 Room Air 07/23/20 20:00 97.7 65 19 151/69 (96) 98 Intake and Output 07/23/20 07/24/20 19:00 07:00 Intake Total 527.5 ml 200 ml Balance 527.5 ml 200 ml Intake Oral 500 ml IV Total 27.5 ml Other 200 ml # Voids 3 Laboratory Tests Test 07/24/20 07:50 White Blood Count 4.7 K/UL (4.8-10.8) L Red Blood Count 4.55 M/UL (4.20-5.40) Hemoglobin 13.0 G/DL (12.0-16.0) Hematocrit 40.6 % (37.0-47.0) Mean Corpuscular Volume 89 FL (80-99) Mean Corpuscular Hemoglobin 28.6 PG (27.0-31.0) Mean Corpuscular Hemoglobin Concent 32.1 G/DL (32.0-36.0) Red Cell Distribution Width 12.5 % (11.6-14.8) Platelet Count 161 K/UL (150-450) Mean Platelet Volume 7.1 FL (6.5-10.1) Neutrophils (%) (Auto) 70.3 % (45.0-75.0) Lymphocytes (%) (Auto) 19.2 % (20.0-45.0) L Monocytes (%) (Auto) 5.6 % (1.0-10.0) Eosinophils (%) (Auto) 4.0 % (0.0-3.0) H Basophils (%) (Auto) 0.8 % (0.0-2.0) Sodium Level 141 MMOL/L (136-145) Potassium Level 3.5 MMOL/L (3.5-5.1) Chloride Level 107 MMOL/L (98-107) Carbon Dioxide Level 26 MMOL/L (21-32) Anion Gap 8 mmol/L (5-15) Blood Urea Nitrogen 8 mg/dL (7-18) Creatinine 0.8 MG/DL (0.55-1.30) Estimat Glomerular Filtration Rate > 60 mL/min (>60) Glucose Level 131 MG/DL (74-106) H Calcium Level 10.0 MG/DL (8.5-10.1) Total Bilirubin 1.0 MG/DL (0.2-1.0) Aspartate Amino Transf (AST/SGOT) 75 U/L (15-37) H Alanine Aminotransferase (ALT/SGPT) 188 U/L (12-78) H Alkaline Phosphatase 306 U/L (46-116) H Total Protein 6.8 G/DL (6.4-8.2) Albumin 3.2 G/DL (3.4-5.0) L Globulin 3.6 g/dL Albumin/Globulin Ratio 0.9 (1.0-2.7) L Alonso Rodriguez MD Jul 24, 2020 17:56
--- NOTE | 2020-07-24 18:44 | Consultation ---
DATE OF CONSULTATION: CARDIOLOGY CONSULTATION REFERRING PHYSICIAN: Jameson Ahumada DO REASON FOR THE CONSULTATION: Management of episodes of hypertension. HISTORY OF PRESENT ILLNESS: The patient is a 74-year-old [place] lady who presented to the emergency room with right upper quadrant pain. The patient has a history of gallstones. The patient was evaluated by ID and Surgery. The patient also has a history of left breast cancer, status post mastectomy about a year ago. The patient was admitted and a cardiology consultation was obtained as the blood pressure was elevated. REVIEW OF SYSTEMS: Negative other than what is mentioned in history of present illness. PAST MEDICAL HISTORY: As mentioned above. FAMILY HISTORY: Noncontributory. SOCIAL HISTORY: She lives at home. Does not smoke or drink alcohol. PHYSICAL EXAMINATION: VITAL SIGNS: Blood pressure 162/75, pulse is 70, respirations 18, and temperature 97.6. HEAD AND NECK: No JVD. LUNGS: Clear. CARDIOVASCULAR: Regular S1 and S2 with no gallop or murmur. ABDOMEN: Soft. EXTREMITIES: No pitting edema. LABORATORY AND DIAGNOSTIC STUDIES: Her labs show white count of 4.7, hemoglobin 13, hematocrit of 40, and platelet count is 161. Sodium is 140, potassium 3.5, BUN of 8, creatinine 0.8, and glucose of 131. Her troponin was negative. ASSESSMENT AND PLAN: 1. Hypertension. Resume the patient on medication including Cozaar 50 mg b.i.d. and amlodipine 2.5 mg daily. The patient would benefit from echocardiogram. The patient would like to be discharged and have it as an outpatient. 2. Acute pancreatitis. 3. Cholecystitis. Further evaluation by Dr. Posadas, on antibiotic and no surgery required at this time. Thank you very much for allowing me to participate in the care of this patient. Please do not hesitate to contact me for any questions regarding my evaluation. Alonso Rodriguez M.D. DR: THAI JOB#: [id number] CC:
--- NOTE | 2020-07-27 14:59 | Discharge Summary ---
Discharge Summary Discharge Summary _ DATE OF ADMISSION: 07/20/2020 DATE OF DISCHARGE: 07/24/2020 DISCHARGED BY: Dr. Ahumada REASON FOR ADMISSION: 74 years old female with past medical history of left breast cancer, status post recent mastectomy , about a year ago and prior radiation therapy , presenred with right upper quadrant abodminal pain, Patient reported prior history of gallstones. She reported worsening pain and persistent vomiting for the last 3 days. No hematemesis , but bilious emesis. Pain was worse with eating . She denied diarrhea Upon evaluation patient had a mild leukocytosis 11.3, stable hemoglobin and hematocrit. Stable electrolytes and renal parameters . AST 178, ALT 230. Albumin 2.8 Lipase 79 . Abdominal ultrasound revealed cholelithiasis. Borderline gallbladder wall thickening, raising possibility of acute cholecystitis. In emergency department patient received fluids, analgesic and admitted for further management. CONSULTANTS: auto design checker Dr. Brown ID specialist Dr. Tao GI specialist Dr. Treesa airplane pilot crop dusting Dr Richard surgery Dr. Posadas HOSPITAL COURSE: Patient admitted to medical surgical floor and initially was kept n.p.o. , on IV hydration and empiric antibiotic. Patient also undergone CT scan of the abdomen and pelvis , which revealed cholelithiasis. Distended gallbladder without gallbladder wall thickening. Extrahepatic and mild central intrahepatic biliary ductal dilatation without evidence of downstream obstructive lesion , possibly age-related. Mild bilateral hydronephrosis and proximal hydroureter without evidence of downstream obstructive lesion. Colonic diverticulosis without evidence of diverticulitis. Chest x-ray demonstrated no definite acute process. Patient also undergone abdominal MRI , which revealed small layering gallstone in the gallbladder. No distention or surrounding inflammation. Common bile duct slightly prominent, but this may be age-related. No filling defects or ductal stones seen. Patient was on antibiotic as per ID specialist recommendation. HIV screen was negative. Acute hepatitis panel was negative. LFT trending down. Mild leukocytosis resolved . Lipase remained stable Patient slowly started on diet and was able to tolerate it. Abdominal pain resolved. Patient had bowel movement. Patient voided without difficulties. No nausea or vomiting. No fever or chills. Abdominal exam remains benign. Per surgeon, no need for any acute surgical intervention. Surgeon recommended outpatient follow-up for elective cholecystectomy. Counts were closely monitored patient initially had pancytopenia. Prior to discharge WBC 4.7, hemoglobin 13, hematocrit 40.6 and platelet count 161. Blood pressure was managed with angiotensin receptor noa and calcium channel noa. Field Sales Consultant recommended that patient will benefit from echocardiogram , which can be done as outpatient. Patient clinically stabilized and was ready for discharge home. FINAL DIAGNOSES: Abdominal pain Cholecystitis Leukocytosis -resolved Elevated liver function test -improved Left-sided breast cancer , status post recent mastectomy Pancytopenia DISCHARGE MEDICATIONS: See Medication Reconciliation list. DISCHARGE INSTRUCTIONS: Patient was discharged home Follow-up with a primary care provider in 1 week. Elective cholecystectomy was recommended. I have been assigned to dictate discharge summary for this account. I was not involved in the patient's management. Lisa Winter NP Jul 27, 2020 14:59
== END 2020-07-24 17:17 | disposition home or self-care (01) ==
LOC: EMR 09:41 → 4E 11:19 → EDBEDREQ 11:24
DX: K80.00 Calculus of gallbladder with acute cholecystitis without obstruction (principal); K85.90 Acute pancreatitis without necrosis or infection, unspecified; B02.9 Zoster without complications; D68.8 Other specified coagulation defects; Z85.3 Personal history of malignant neoplasm of breast; Z90.11 Acquired absence of right breast and nipple; N13.30 Unspecified hydronephrosis; K57.90 Diverticulosis of intestine, part unspecified, without perforation or abscess without bleeding; D61.818 Other pancytopenia
CPT/HCPCS: 36415; 71045; 74177; 74181; 76700; 80053; 81003; 82150; 82248; 83690; 84484; 85007; 85025; 85610; 85730; 86703; 86705; 86709; 86803; 86850; 86900; 86901; 87040; 87340; 96361; 96374; 96375; 99285; J2405; J7030